=== PATIENT | male | born 1990 | race Two or more races ===

== ENCOUNTER 2024-09-01 09:04 | Emergency (ER) | payer MEDICAID, OTHER ==
[~2024-09-01] VITALS: Ht 182.9 cm; Wt 175.0 kg
[2024-09-01 09:10] VITALS: TEMP 98.4
[2024-09-01] MEDS: levETIRAcetam 1000 mg/100ml 100 ML IV ONE (09:44)
--- NOTE | 2024-09-01 09:44 | ED.PDOC ---
HPI (NEURO) HPI Comments 34-year-old male with PMHx Seizures brought in by EMS presents s/p seizure activity. Patient had 2 tonic-clonic seizures that were witnessed by patients spouse. Patient reports that he missed his Keppra doses for today and yesterday. Patient also endorses drinking alcohol more often recently, due to underlying stress from the of his father recently. Patient mentions that he has an appointment with his neurologist on to have an EEG performed. Patient cannot recall the events after the seizure. Chief Complaint: Seizure Time Seen by MD: 09:17 Primary Care Provider: UNKNOWN Reviewed Notes: Medications, Allergies Information Source: Patient, Emergency Med Personnel Mode of Arrival: EMS Severity: Moderate Headache Severity: None Duration: Intermittent Prehospital treatment: None Seizure Quality: Tonic-clonic Seizure Location: Generalized Onset: With light exertion Circumstances: Spontaneous, Recent stress (d) Past Medical History PAST MEDICAL HISTORY: Seizures Surgical History: Denies all surgeries Family History Family History: Reviewed,noncontributory to illness Social History Smoker: Non-Smoker Alcohol: Heavy Drugs: Denies Drug Use Lives In: Home Constitutional: denies: chills, diaphoresis, fatigue, fever, malaise, sweats, weakness, others EENTM: denies: blurred vision, double vision, ear bleeding, ear discharge, ear drainage, ear pain, ear ringing, eye pain, eye redness, hearing loss, mouth pain, mouth swelling, nasal discharge, nose bleeding, nose congestion, nose pain, photophobia, tearing, throat pain, throat swelling, voice changes, others Respiratory: denies: cough, hemoptysis, orthopnea, SOB at rest, shortness of breath, SOB with excertion, stridor, wheezing, others Cardiovascular: denies: chest pain, dizzy spells, diaphoresis, Dyspnea on exertion, edema, irregular heart beat, left arm pain, lightheadedness, palpitations, PND, syncope, others Gastrointestinal: denies: abdomen distended, abdominal pain, blood streaked bowels, constipated, diarrhea, dysphagia, difficulty swallowing, hematemesis, melena, nausea, poor appetite, poor fluid intake, rectal bleeding, rectal pain, vomiting, others Genitourinary: denies: burning, dysuria, flank pain, frequency, hematuria, incontinence, penile discharge, penile sore, pain, testicle pain, testicle swelling, urgency, others Neurological: reports: seizure; denies: dizziness, fainting, headache, left sided numbness, left sided weakness, numbness, paresthesia, pre-existing deficit, right sided numbness, right sided weakness, speech problems, tingling, tremors, weakness, others Musculoskeletal: denies: back pain, gout, joint pain, joint swelling, muscle pain, muscle stiffness, neck pain, others Integumetry: denies: bruises, change in color, change in hair/nails, dryness, laceration, lesions, lumps, rash, wounds, others Allergic/Immunocompromised: denies: Difficulty Healing, Frequent Infections, Hives, Itching, others Hematologic/Lymphatic: denies: anemia, blood clots, easy bleeding, easy bruising, swollen glands, others Endocrine: denies: excessive hunger, excessive sweating, excessive thirst, excessive urination, flushing, intolerance to cold, intolerance to heat, unexplained weight gain, unexplained weight loss, others Psychiatric: denies: anxiety, bipolar disorder, depression, hopeless, panic disorder, schizophrenia, sleepless, suicidal, others All Other Systems: Reviewed and Negative Physical Exam General Appearance: No Apparent Distress, Obese, Other (NO ORAL TRAUMA) HEENT: NOT DONE Neck: NOT DONE Respiratory: NOT DONE Cardiovascular: NOT DONE Breast Exam: Deferred Gastrointestinal: No Organomegaly, Non Tender, No Pulsatile Mass, Normal Bowel Sounds, Soft Genitalia: Deferred Pelvic: Deferred Rectal: Deferred Extremities: No calf tenderness, Normal capillary refill, Normal inspection, Normal range of motion, Non-tender, No pedal edema Neurologic: Alert, running specialist II-XII nml as Tested, No Motor Deficits, Normal Affect, Normal Mood, No Sensory Deficits Cerebellar Function: Normal Reflexes: Normal Skin: Dry, Normal Color, Warm Lymphatic: No Adenopathy Was a procedure done? Was a procedure done?: No Differential Diagnosis (SZ) Seizure: Psychogenic Seizure, Alcohol Withdrawl, Idiopathic, Epilepsy-Break Through, Epilepsy-Status X-Ray, Labs, Meds, VS Vital Signs Date Time Temp Pulse Resp B/P (MAP) Pulse Ox O2 Delivery O2 Flow Rate FiO2 09/01/24 09:10 98.4 84 16 153/100 (117) 96 98.4 09/01/24 09:04 98.4 84 16 153/100 (117) 96 Lab Test 09/01/24 09:45 Range/Units White Blood Count 8.0 4.4-10.8 10^3/uL Red Blood Count 5.46 4.5-5.90 10^6/uL Hemoglobin 15.4 13.5-17.5 g/dL Hematocrit 46.8 41.0-53.0 % Mean Corpuscular Volume 85.7 80.0-100.0 fL Mean Corpuscular Hemoglobin 28.2 28.0-32.0 pg Mean Corpuscular Hemoglobin Concent 33.0 32.0-36.0 g/dL Red Cell Distribution Width 14.0 11.8-14.3 % Platelet Count 317 140-450 10^3/uL Mean Platelet Volume 6.0 L 6.9-10.8 fL Neutrophils (%) (Auto) 75.6 37.0-80.0 % Lymphocytes (%) (Auto) 18.3 10.0-50.0 % Monocytes (%) (Auto) 5.0 0.0-12.0 % Eosinophils (%) (Auto) 0.5 0.0-7.0 % Basophils (%) (Auto) 0.6 0.0-2.0 % Neutrophils # (Auto) 6.0 1.6-8.6 10 ^3/uL Lymphocytes # (Auto) 1.5 0.4-5.4 10 ^3/uL Monocytes # (Auto) 0.4 0-1.3 10 ^3/uL Eosinophils # (Auto) 0 0-0.8 10 ^3/uL Basophils # (Auto) 0 0-0.2 10 ^3/uL Nucleated Red Blood Cells 0.0 % Sodium Level 137 136-145 mmol/L Potassium Level 4.5 3.5-5.1 mmol/L Chloride Level 101 98-107 mmol/L Carbon Dioxide Level 27 20-31 mmol/L Anion Gap 9 5-15 Blood Urea Nitrogen 12 9-23 mg/dL Creatinine 1.05 0.700-1.30 mg/dL Glomerular Filtration Rate Calc 94 >90 mL/min BUN/Creatinine Ratio 11.4 10.0-20.0 Serum Glucose 106 74-106 mg/dL Calcium Level 9.8 8.7-10.4 mg/dL Current Medications Medications (Trade) Dose Ordered Sig/Perry Route Start Time Stop Time Status Last Admin Levetiracetam 100 ml @ 400 mls/hr ONCE ONCE IV 09/01/24 09:30 09/01/24 09:44 DC 09/01/24 09:44 34-year-old male presents here presents here status post seizures. Patient has missed 2 doses of his Keppra as he was not in the home and did not have his medications on him. He has a known history of seizures and had a seizure this morning. Tonic-clonic. At this time blood work has been done with a normal CBC and BMP. I have loaded him with Keppra 1000 mg IV. At this time I will be discharging him home. He states he has been off Keppra at home. Strongly ad vised him that he should keep Keppra on him at all times. Patient already states that he has does not drive as his license has been taken away. Advised him to return if symptoms worsen or persist. Time of 1ST Reevaluation: 09:47 Reevaluation 1ST: Unchanged Patient Education/Counseling: Diagnosis, Treatment, Prognosis Family Education/Counseling: Diagnosis, Treatment, Prognosis Departure 1 Departure Time of Disposition: 11:00 Impression: Primary Impression: Seizure Disposition: 01 HOME / SELF CARE / HOMELESS Condition: Fair Discharged With: Self Critical Care Note Critical Care Time?: No Stability Stability form required: No Heart Score Heart Score: Heart Score Response (Comments) Value History N/A 0 EKG N/A 0 Age N/A 0 Risk Factors N/A 0 Troponin N/A 0 Total 0 I personally scribed for GUI TA MD ([email or web address]) on 09/01/24 at 09:44. Electronically submitted by Leeroy Shaffer ([email or web address]). I personally scribed for GUI TA MD ([email or web address]) on 09/01/24 at 09:47. Electronically submitted by Leeroy Shaffer ([email or web address]). GUI TA MD Sep 01, 2024 09:44
[2024-09-01 09:56] LABS: Basophils # (auto) 0 10 ^3/uL (0-0.2); Basophils % (auto) 0.6 % (0.0-2.0); Eosinophils # (auto) 0 10 ^3/uL (0-0.8); Eosinophils % (auto) 0.5 % (0.0-7.0); Hematocrit 46.8 % (41.0-53.0); Hemoglobin 15.4 g/dL (13.5-17.5); Lymphocytes # (auto) 1.5 10 ^3/uL (0.4-5.4); Lymphocytes % (auto) 18.3 % (10.0-50.0); Mean Corpuscular Hemoglobin 28.2 pg (28.0-32.0); Mean Corpuscular Volume 85.7 fL (80.0-100.0); Monocytes # (auto) 0.4 10 ^3/uL (0-1.3); Neutrophils % (auto) 75.6 % (37.0-80.0); Platelet Count (auto) 317 10^3/uL (140-450); Red Blood Cells 5.46 10^6/uL (4.5-5.90)
[2024-09-01 10:06] LABS: Anion Gap 9 (5-15); Carbon Dioxide 27 mmol/L (20-31); Chloride 101 mmol/L (98-107); Potassium 4.5 mmol/L (3.5-5.1); Sodium 137 mmol/L (136-145)
[2024-09-01 10:07] LABS: Calcium 9.8 mg/dL (8.7-10.4)
[2024-09-01 10:12] LABS: BUN/Creatinine Ratio 11.4 (10.0-20.0); Blood Urea Nitrogen 12 mg/dL (9-23)
[2024-09-01 10:23] LABS: Glucose 106 mg/dL (74-106)
[2024-09-01 11:26] VITALS: BP 133/92; PULSE 78; RESP 16; O2SAT 96
== END 2024-09-01 11:29 | disposition home or self-care (01) ==
LOC: EDBD 09:04 → ER 09:04
DX: R56.9 Unspecified convulsions (principal)
CPT/HCPCS: 36415; 80048; 82947; 85025; 96365; 99284; J1953; 96372

== ENCOUNTER 2024-09-22 03:51 | Emergency (ER) | payer MEDICAID ==
[~2024-09-22] VITALS: Ht 180.3 cm; Wt 150.0 kg
[2024-09-22] MEDS: levETIRAcetam 500 MG TAB PO ONE (04:35)
--- NOTE | 2024-09-22 04:46 | ED.PDOC ---
HPI (NEURO) HPI Comments 34-year-old male came to ER via EMS for seizures. Patient does have you do have seizure disorder, takes Keppra 500 mg twice a day, however patient usually foregoes the night (2nd) dose. Patient was drinking earlier and he went to bed without taking his Keppra again. Had a witnessed tonic clonic seizure, lasting about a minute. 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 Information Source: Patient, Emergency Med Personnel Mode of Arrival: EMS Severity: Moderate Dizziness/Weakness Severity: Unable to do activities Headache Severity: Moderate Timing: Minutes Duration: Minutes Prehospital treatment: None Seizure Quality: Tonic-clonic Headache Quality: Throbbing, Aching Headache Location: Generalized Weakness Location: Generalized Numbness Location: Generalized Seizure Location: Generalized Onset: At rest Circumstances: Spontaneous Symptoms: Weakness Before: Normal During: LOC After: Confusion, Headache History of: Seizure Disorder, Other (Alcoholism) Modifying factors: Nothing Associated Signs and Symptoms: Weakness Past Medical History PAST MEDICAL HISTORY: Seizures Surgical History: Denies all surgeries Family History Family History: Reviewed,noncontributory to illness Social History Smoker: Non-Smoker Alcohol: Heavy Drugs: Denies Drug Use Lives In: Home Constitutional: denies: chills, diaphoresis, fatigue, fever, malaise, sweats, weakness, others EENTM: denies: blurred vision, double vision, ear bleeding, ear discharge, ear drainage, ear pain, ear ringing, eye pain, eye redness, hearing loss, mouth pain, mouth swelling, nasal discharge, nose bleeding, nose congestion, nose pain, photophobia, tearing, throat pain, throat swelling, voice changes, others Respiratory: denies: cough, hemoptysis, orthopnea, SOB at rest, shortness of breath, SOB with excertion, stridor, wheezing, others Cardiovascular: denies: chest pain, dizzy spells, diaphoresis, Dyspnea on exertion, edema, irregular heart beat, left arm pain, lightheadedness, palpitations, PND, syncope, others Gastrointestinal: denies: abdomen distended, abdominal pain, blood streaked bowels, constipated, diarrhea, dysphagia, difficulty swallowing, hematemesis, melena, nausea, poor appetite, poor fluid intake, rectal bleeding, rectal pain, vomiting, others Genitourinary: denies: burning, dysuria, flank pain, frequency, hematuria, incontinence, penile discharge, penile sore, pain, testicle pain, testicle swelling, urgency, others Neurological: reports: seizure; denies: dizziness, fainting, headache, left sided numbness, left sided weakness, numbness, paresthesia, pre-existing deficit, right sided numbness, right sided weakness, speech problems, tingling, tremors, weakness, others Musculoskeletal: denies: back pain, gout, joint pain, joint swelling, muscle pain, muscle stiffness, neck pain, others Integumetry: denies: bruises, change in color, change in hair/nails, dryness, laceration, lesions, lumps, rash, wounds, others Allergic/Immunocompromised: denies: Difficulty Healing, Frequent Infections, Hives, Itching, others Hematologic/Lymphatic: denies: anemia, blood clots, easy bleeding, easy bruising, swollen glands, others Endocrine: denies: excessive hunger, excessive sweating, excessive thirst, excessive urination, flushing, intolerance to cold, intolerance to heat, unexplained weight gain, unexplained weight loss, others Psychiatric: denies: anxiety, bipolar disorder, depression, hopeless, panic disorder, schizophrenia, sleepless, suicidal, others Physical Exam General Appearance: No Apparent Distress, Normal HEENT: Normal ENT Inspection, Pharynx Normal, TMs Normal Neck: Full Range of Motion, Non-Tender, Normal, Normal Inspection Respiratory: Chest Non-Tender, Lungs Clear, No Accessory Muscle Use, No Respiratory Distress, Normal Breath Sounds Cardiovascular: No Edema, No JVD, No Murmur, No Gallop, Normal Peripheral Pulses, Regular Rate/Rhythm Breast Exam: Deferred Gastrointestinal: No Organomegaly, Non Tender, No Pulsatile Mass, Normal Bowel Sounds, Soft Genitalia: Deferred Pelvic: Deferred Rectal: Deferred Extremities: No calf tenderness, Normal capillary refill, Normal inspection, Normal range of motion, Non-tender, No pedal edema Musculoskeletal : Apperance: Normal Neurologic: Alert, border machine operator II-XII nml as Tested, No Motor Deficits, Normal Affect, Normal Mood, No Sensory Deficits Cerebellar Function: Normal Reflexes: Normal Skin: Dry, Normal Color, Warm Lymphatic: No Adenopathy Was a procedure done? Was a procedure done?: No Differential Diagnosis (SZ) Seizure: Psychogenic Seizure, Hypoxemia, Idiopathic, Encephalopathy, Epilepsy- Break Through, Epilepsy-Status X-Ray, Labs, Meds, VS Vital Signs Date Time Temp Pulse Resp B/P (MAP) Pulse Ox O2 Delivery O2 Flow Rate FiO2 09/22/24 03:51 98.6 94 16 147/103 (118) 96 98.6 Current Medications Medications (Trade) Dose Ordered Sig/Perry Route Start Time Stop Time Status Last Admin Levetiracetam (Keppra Tablet) 1,000 mg ONCE ONCE PO 09/22/24 04:30 09/22/24 04:31 DC 09/22/24 04:35 Time of 1ST Reevaluation: 04:41 Reevaluation 1ST: Unchanged Patient Education/Counseling: Diagnosis, Treatment Family Education/Counseling: No Family Present Departure 1 Departure Time of Disposition: 04:54 (Patient had a breakthrough seizure in the setting of medication noncompliance. Patient has returned to baseline. Patient would like to go home. We will discharge patient home with outpatient follow up) Impression: Primary Impression: Breakthrough seizure Disposition: 01 HOME / SELF CARE / HOMELESS Condition: Stable Additional Instructions: You had a breakthrough seizure today. It is important to take your seizure medication. You should stay well rested and well hydrated. You should follow up with your regular doctor within 1 week. If your symptoms worsen or you have any other concerns then please return to the emergency room. Discharged With: Self Critical Care Note Critical Care Time?: No Stability Stability form required: No Heart Score Heart Score: Heart Score Response (Comments) Value History N/A 0 EKG N/A 0 Age N/A 0 Risk Factors N/A 0 Troponin N/A 0 Total 0 I personally scribed for ALEX SANTOYO MD ([email or web address]) on 09/22/24 at 04:46. Electronically submitted by Pavan Peter ([email or web address]). ALEX SANTOYO MD Sep 22, 2024 04:46
[2024-09-22 04:50] VITALS: BP 147/103; PULSE 94; RESP 16; TEMP 98.6; O2SAT 96
== END 2024-09-22 05:01 | disposition home or self-care (01) ==
LOC: EDBD 03:51 → ER 03:51 → EDUNIT# 03:51 → ER 05:01
DX: G40.909 Epilepsy, unspecified, not intractable, without status epilepticus (principal); Z79.899 Other long term (current) drug therapy

== ENCOUNTER 2024-09-26 15:03 | Inpatient (IN) | payer MEDICAID ==
[~2024-09-26] VITALS: Ht 182.9 cm; Wt 85.3 kg
--- NOTE | 2024-09-26 15:17 | ECG ---
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
--- NOTE | 2024-09-26 15:32 | ED.PDOC ---
HPI (NEURO) HPI Comments HPI: Poor Historian. 34y M who presents to the ED for chief complaint of seizures. Pt had the following ED course: -pt states he has seizure earlier this AM witnessed by mother lasting approx 2 minutes witnessed by mother while sitting at dining table - pt did not fall or have any associate loss of consciousness and no noted oral trauma or incontinence was noted - pt states he has history of seizure disorder and takes Keppra 500 mg BID and states he is complaint and states he took his prescribed dose today - pt states he last had seizure last Monday despite also having taken his Meds - pt states he now in the ED, he is alert and oriented x 4 and no associated headache, dizziness or any associated symptoms are noted - pt states he had brain MRI 2 weeks prior and saw neurologist 1 days prior and states it came back negative -pt otherwise denies any other symptoms at this time. - past medical history: seizure disorder, past surgical history: gastric sleeve, medications: keppra allergies: denies social history: denies tobacco use, denies Etoh use, denies drug use REVIEW OF SYSTEMS: CONSTITUTIONAL: Denies acute: fever, diaphoresis, chills, generalized weakness. HEAD: Denies acute: headache, photophobia Eyes: Denies acute: Double vision, vision loss, eye pain, eye discharge. EARS: Denies acute: tinnitus, hearing loss, ear discharge, ear pain, THROAT: Denies acute: sore throat, swelling, difficulty swallowing , pain with swallowing, change in voice. NECK: Denies acute: neck pain, neck swelling, stiff neck. HEART: Denies acute : chest pain, palpitations, LUNGS: Denies acute: SOB, wheezing, cough, hemoptysis ABDOMEN: Denies acute: abdominal pain, Nausea, Vomiting, diarrhea, melena , hematemesis, hematochezia SKIN: Denies acute: rash, redness, lesions, itchiness. EXTREMITIES: Denies acute: calf pain, numbness, tingling, weakness, denies pain in extremity. Denies acute: Low back pain. Neuro: Denies acute: focal neurological deficit, motor or sensory focal neurological deficit, , confusion, dizziness, change in mental status, loss of bowel or bladder function, cauda equina like symptoms. : Denies acute: dysuria, hematuria, flank pain, increase in urinary frequency. PSYCH: Denies acute: hallucination, suicidal ideation, homicidal ideation. PHYSICAL EXAM: General: no acute distress, awake and alert. Head: normocephalic, atraumatic. Neck: supple, trachea is midline, no swelling. Throat: Normal phonation. Eyes:, no erythema, no purulent discharge, no proptosis, no icterus. Heart: regular rate, regular rhythm, no significant murmur appreciated. Lungs: no apparent respiratory distress, Able to speak in full sentences. No wheezing, no rhonchi, no crackles. No stridors Clear to auscultation bilaterally. Abdomen: non tender to palpation, non distended, soft, no guarding, no rebound, + bowel sounds. Neuro: Awake, Alert, oriented to name, self, situation, follows commands GCS=15. Speech is normal. Skin: no petechia, no purpura, no cyanosis, non-pale, not jaundice. Lower extremities: --no - Pitting edema no deformity, no focal swelling, no calf TTP. Makes eye contact. moves all four extremities. Face: no apparent facial droop. Ambulating in the ED independently. PERRLA, EOM-I CN 2-12 are grossly intact, No nystagmus. No nuchal rigidity, Kernig's sign, Brudzinski's sign, no meningeal signs. ED COURSE: Chief Complaint: Seizure Time Seen by MD: 15:06 Primary Care Provider: UNKNOWN Reviewed Notes: Medications, Allergies Information Source: Patient Mode of Arrival: Ambulatory Brought in by: self Past Medical History PAST MEDICAL HISTORY: Seizures Surgical History: Denies all surgeries Family History Family History: Reviewed,noncontributory to illness Social History Smoker: Non-Smoker Alcohol: Heavy Drugs: Denies Drug Use Lives In: Home Was a procedure done? Was a procedure done?: No Differential Diagnosis (SZ) Seizure: Other (SEIZUREDDX include not limited to CVA, cerebellar ischemia/infarct, carotid stenosis, vertebral/carotid artery dissection,, vertebrobasillary insufficiency, Intracranial mass/infection/bleed, encephalopathy, elctrolyte abnormality, thyroid disease, multiple sclerosis, hypoglycemia, drug toxicity, cardiac arrhythmia, sub-theraputic anti-convulsion medications, known seizure disorder, pseudo-seizure.) X-Ray, Labs, Meds, VS Vital Signs Date Time Temp Pulse Resp B/P (MAP) Pulse Ox O2 Delivery O2 Flow Rate FiO2 09/26/24 19:40 98.5 65 16 90/46 (61) 96 98.5 09/26/24 16:25 98.0 92 17 151/85 (107) 96 98.0 09/26/24 16:25 92 17 96 Room Air* 0 21 09/26/24 16:24 94 09/26/24 15:16 101 09/26/24 15:13 99.0 103 20 122/83 (96) 97 99.0 Lab Test 09/26/24 18:40 09/26/24 16:20 09/26/24 15:51 09/26/24 15:20 Range/Units Troponin I High Sensitivity 11 9 8 </=54 ng/L Urine Color Yellow Yellow Urine Clarity Clear Clear Urine pH 5.5 5.0-9.0 Urine Specific [place] 1.027 1.001-1.035 Urine Protein 1+ H Negative Urine Ketones 1+ H Negative Urine Blood Negative Negative /uL Urine Nitrite Negative Negative Urine Bilirubin Negative Negative Urine Urobilinogen 2 H Negative mg/dL Urine Leukocyte Esterase Negative Negative /uL Urine RBC 3 0 - 3 /hpf Urine Microscopic WBC 5 H 0-3 /HPF Urine Squamous Epithelial Cells Few <5 /hpf Urine Bacteria Few H None Seen /hpf Urine Mucus Few None Seen Urine Sperm Present None Seen /hpf Urine Glucose Normal Normal mg/dL White Blood Count 11.3 H 4.4-10.8 10^3/uL Red Blood Count 5.39 4.5-5.90 10^6/uL Hemoglobin 15.7 13.5-17.5 g/dL Hematocrit 47.3 41.0-53.0 % Mean Corpuscular Volume 87.8 80.0-100.0 fL Mean Corpuscular Hemoglobin 29.1 28.0-32.0 pg Mean Corpuscular Hemoglobin Concent 33.1 32.0-36.0 g/dL Red Cell Distribution Width 14.0 11.8-14.3 % Platelet Count 290 140-450 10^3/uL Mean Platelet Volume 6.0 L 6.9-10.8 fL Neutrophils (%) (Auto) 79.3 37.0-80.0 % Lymphocytes (%) (Auto) 13.6 10.0-50.0 % Monocytes (%) (Auto) 6.3 0.0-12.0 % Eosinophils (%) (Auto) 0.5 0.0-7.0 % Basophils (%) (Auto) 0.3 0.0-2.0 % Neutrophils # (Auto) 9.0 H 1.6-8.6 10 ^3/uL Lymphocytes # (Auto) 1.5 0.4-5.4 10 ^3/uL Monocytes # (Auto) 0.7 0-1.3 10 ^3/uL Eosinophils # (Auto) 0.1 0-0.8 10 ^3/uL Basophils # (Auto) 0 0-0.2 10 ^3/uL Nucleated Red Blood Cells 0.1 % Sodium Level 139 136-145 mmol/L Potassium Level 4.2 3.5-5.1 mmol/L Chloride Level 104 98-107 mmol/L Carbon Dioxide Level 26 20-31 mmol/L Anion Gap 9 5-15 Blood Urea Nitrogen 15 9-23 mg/dL Creatinine 0.99 0.700-1.30 mg/dL Glomerular Filtration Rate Calc 101 >90 mL/min BUN/Creatinine Ratio 15.2 10.0-20.0 Serum Glucose 73 L 74-106 mg/dL Lactic Acid Level 1.6 0.4-2.0 mmol/L Calcium Level 9.7 8.7-10.4 mg/dL Magnesium Level 1.9 1.6-2.6 mg/dL Total Bilirubin 0.7 0.2-1.0 mg/dL Aspartate Amino Transferase (AST) 25 13-40 U/L Alanine Aminotransferase (ALT) 32 7-40 U/L Alkaline Phosphatase 80 46-116 U/L Creatine Kinase 141 46-171 U/L B-Type Natriuretic Peptide 16.97 0-100 pg/mL Total Protein 8.0 5.7-8.2 g/dL Albumin 5.0 H 3.2-4.8 g/dL Test 09/26/24 15:14 Range/Units Levetiracetam Level Pending Current Medications Medications (Trade) Dose Ordered Sig/Perry Route Start Time Stop Time Status Last Admin Levetiracetam 100 ml @ 400 mls/hr ONCE ONCE IV 09/26/24 15:15 09/26/24 15:29 DC 09/26/24 16:36 Ceftriaxone Sodium 50 ml @ 100 mls/hr ONCE ONCE IV 09/26/24 18:45 09/26/24 19:14 DC 09/26/24 19:00 [facility] [id number] [place] [id number] Ph: [phone] DIAGNOSTIC IMAGING Diagnostic Imaging Report : [id number] Signed PATIENT: TERI RAUSCH ACCT: [id number] UNIT: [id number] : 1990 LOC: ER ROOM / BED: / AGE / SEX: 34 / M ADM STATUS: REG ER SERVICE 1512 ORDERING PHYSICIAN: JEAN CLAUDE FRIEDMAN DO PROCEDURE(s): CXRP - CHEST PORTABLE REASON: seizure ORDER NUMBER(s): [id number], ACCESSION NUMBER(s): [id number] EXAM: XY CHEST PORTABLE HISTORY: seizure COMPARISON: None TECHNIQUE: Portable AP view of the chest was performed. FINDINGS: There is mild interstitial prominence, greatest centrally. No pneumothorax or consolidative infiltrates. The heart is not enlarged. IMPRESSION: Mild interstitial prominence may be due to reactive airways disease or mild CHF. The lungs are otherwise clear. ATED BY: PAULA RAMIREZ MD DICTATED DATE/TIME: 09/26/24 154 SIGNED BY: PAULA RAMIREZ MD SIGNED DATE/TIME: 09/26/24 154 CC: Time of 1ST Reevaluation: 22:51 Reevaluation 1ST: Resolved Patient Education/Counseling: Diagnosis, Treatment Family Education/Counseling: No Family Present Comments Patient presented with the above HPI.---seizure---workup was initiated. patient was found with the above mentioned diagnosis. the following medications were ordered: please refer to order lists of meds and tests obtained by myself Dr. Friedman. Patient ED course and VS have been stabilized. Patient has been reassessed in the ED and remained in a stable condition. Pertinent incidental findings were discussed with the patient and/or family. Patient/family voices understanding and is agreeable with plan. Patient has been observed in the ED adequate length of time to insure improvement/stability. Escalation of care considered: Consideration of escalation to observation or admission Patient was ADMITTED to the medicine team for further evaluation and treatment of their presentation. Patient was given antibiotics for suspected UTI. All the reports of any imaging studies that were ordered by myself were reviewed by myself. Departure 1 Departure Time of Disposition: 19:15 Impression: Primary Impression: Recurrent seizures Disposition: ADMITTED INPATIENT Admit to: Tele Condition: Guarded Discharged With: Self Critical Care Note Critical Care Time?: No Heart Score Heart Score: Heart Score Response (Comments) Value History N/A 0 EKG N/A 0 Age N/A 0 Risk Factors N/A 0 Troponin N/A 0 Total 0 I personally scribed for JEAN CLAUDE FRIEDMAN DO ([email or web address]) on 09/26/24 at 15:59. Electronically submitted by Alexa Osborne (JUSTIN). I personally scribed for JEAN CLAUDE FRIEDMAN DO ([email or web address]) on 09/26/24 at 17:39. Electronically submitted by Alexa Osborne (LAMINE). JEAN CLAUDE FRIEDMAN DO Sep 26, 2024 15:32
[2024-09-26 15:41] LABS: Basophils # (auto) 0 10 ^3/uL (0-0.2); Basophils % (auto) 0.3 % (0.0-2.0); Eosinophils # (auto) 0.1 10 ^3/uL (0-0.8); Eosinophils % (auto) 0.5 % (0.0-7.0); Hematocrit 47.3 % (41.0-53.0); Hemoglobin 15.7 g/dL (13.5-17.5); Lymphocytes # (auto) 1.5 10 ^3/uL (0.4-5.4); Lymphocytes % (auto) 13.6 % (10.0-50.0); Mean Corpuscular Hemoglobin 29.1 pg (28.0-32.0); Mean Corpuscular Hgb Conc. 33.1 g/dL (32.0-36.0); Mean Corpuscular Volume 87.8 fL (80.0-100.0); Monocytes # (auto) 0.7 10 ^3/uL (0-1.3); Monocytes % (auto) 6.3 % (0.0-12.0); Neutrophils % (auto) 79.3 % (37.0-80.0); Nucleated Red Blood Cells % 0.1 %; Platelet Count (auto) 290 10^3/uL (140-450); Red Blood Cells 5.39 10^6/uL (4.5-5.90); White Blood Cell 11.3 10^3/uL (4.4-10.8)
--- NOTE | 2024-09-26 15:50 | DVH ---
EXAM: XY CHEST PORTABLE HISTORY: seizure COMPARISON: None TECHNIQUE: Portable AP view of the chest was performed. FINDINGS: There is mild interstitial prominence, greatest centrally. No pneumothorax or consolidativ e infiltrates. The heart is not enlarged. IMPRESSION: Mild interstitial prominence may be due to reactive airways disease or mild CHF. The lungs are other callejas clear.
[2024-09-26 15:57] LABS: Alanine Aminotransferase 32 U/L (7-40); Alkaline Phosphatase 80 U/L (46-116); Anion Gap 9 (5-15); Aspartate Aminotransferase 25 U/L (13-40); BUN/Creatinine Ratio 15.2 (10.0-20.0); Bilirubin, Total 0.7 mg/dL (0.2-1.0); Blood Urea Nitrogen 15 mg/dL (9-23); Calcium 9.7 mg/dL (8.7-10.4); Carbon Dioxide 26 mmol/L (20-31); Chloride 104 mmol/L (98-107); Creatine Kinase IFCC 141 U/L (46-171); Magnesium 1.9 mg/dL (1.6-2.6); Potassium 4.2 mmol/L (3.5-5.1); Sodium 139 mmol/L (136-145)
[2024-09-26 16:02] LABS: Glucose 73 mg/dL (74-106)
[2024-09-26 16:14] LABS: Urine Bacteria FEW /hpf (None Seen); Urine Blood Negative /uL (Negative); Urine Clarity Clear (Clear); Urine Color Yellow (Yellow); Urine Mucus FEW (None Seen); Urine Protein, UAD 1+ (Negative); Urine Specific Gravity 1.027 (1.001-1.035); Urine Sperm PRESENT /hpf (None Seen); Urine Squamous Epithelial Cell FEW /hpf (<5); Urine Urobilinogen 2 mg/dL (Negative); Urine WBC 5 /HPF (0-3); Urine pH 5.5 (5.0-9.0)
[2024-09-26 16:25] VITALS: PULSE 92; RESP 17; O2SAT 96
[2024-09-26] MEDS: levETIRAcetam 1000 mg/100ml 100 ML IV ONE (16:36)
[2024-09-26] MEDS: cefTRIAXone 1GM/50ML D5W 50 ML IV ONE (19:00)
[2024-09-26] MEDS ORDERED: LORazepam 2MG/ML-1ML VIAL IV PRN (23:15)
[2024-09-26] MEDS ORDERED: HYDROcodone-ACET 5/325MG TAB PO PRN (23:15)
[2024-09-26] MEDS ORDERED: ONDANSETRON HCL 4 MG/2 ML VIAL IV PRN (23:15)
[2024-09-26] MEDS ORDERED: MORPHINE SULFATE INJ 2 MG/ml SYRG IV PRN (23:15)
[2024-09-26] MEDS: PANTOPRAZOLE 40 MG/10 ML VIAL INJ IV ONE (23:15)
--- NOTE | 2024-09-26 23:15 | DVHHPRES ---
History of Present Illness Resident Creating Document: TANISHA GRIMES RESDIENT History of Present Illness This is a 34-year-old male with past medical history of diabetes, dyslipidemia, gastric sleeve surgery (due to morbid obesity) and seizure came to the hospital after an episode of seizure. Per patient, he was sitting on the chair when sudden his legs start shaking (witnessed by the mother), lost his consciousness but did not fall, upon waking up he was confused for 10 minutes, had bitten his tongue and do not recall the incident. He also reports of feeling hotness. He denies fever, nausea, vomiting, shortness of breath, chest pain or any sensory or motor deficits. Patient has been diagnosed with seizure since 1 year, and has been started on Keppra 500 mg b.i.d. since July 2024. Two weeks back, had an EEG study at his neurologist's office, the result was reported markos, but was told of having a lesion (per patient is scar) in his brain. PMHx: diabetes, dyslipidemia, gastric sleeve surgery (due to morbid obesity) and seizure PSHx: Gastric sleeve surgery Family history: Sister has spina bifida and seizure Social history: Lives with the at home, vaping, and drank occasionally. Home medication: Keppra Allergic history: No known allergy Review of Systems Review of Systems General: patient denies fever, fatigue, weaknes, sweating, any recent changes in appetite and weight HEENT: No headaches, visiual changes, hearing loss, tinnitus, nasal congestion and discharge, and sore throat. Cardiovascular: Denies chest pain, palpitations, dyspnea on exertion, orthopnea, or claudication. Respiratory: No cough, and wheezing. Gastrointestinal: Denies nausea, vomiting, dysphagia, odynophagia, heartburn, abdominal pain, flatulence, bloating, diarrhea, constipation, change in stool, or blood in stool. Genitourinary: No dysuria, hematuria, discharge, frequency, urgency, nocturia, incontinence, and urinary retention. Endocrine: No heat or cold intolerance, polydipsia, polyuria, and polyphagia. Neurological: No dizziness, extremity weakness and numbness, tremors, gait disturbance, seizures, and memory impairment. Psychiatric: Denies depression, anxiety,or insomnia. Musculoskeletal: Denies neck pain, stiffness and swelling, back pain, muscle weakness, joint pain, stiffness, swelling, or limited range of motion. Skin: No rashes, itching, skin lesion, changes in hair, nail, skin texture and breast. Hematologic/Lymphatic: Denies easy bruising, bleeding tendencies, or lymph node enlargement. Allergies: Coded Allergies: NO KNOWN ALLERGIES (Unverified , 09/01/24) Exam Vital Signs Vital Signs Date Time Temp Pulse Resp B/P (MAP) Pulse Ox O2 Delivery O2 Flow Rate FiO2 09/26/24 19:40 98.5 65 16 90/46 (61) 96 98.5 09/26/24 16:25 Room Air* 0 21 Exam General Appearance: Alert, Oriented X3, Cooperative, No acute distress HEENT: Atraumatic, PERRLA, EOMI, Mucous membrane moist/pink Respiratory: Clear to auscultation, Normal air movement Cardiovascular: Regular rate, Normal S1, Normal S2, No murmurs, no chest wall tenderness Abdominal: Normal bowel sounds, Soft, No tenderness, No hepatospenomegaly, No masses Extremities: No clubbing, No cyanosis, No edema, Normal pulses, No tenderness/swelling Skin: No rashes, No breakdown, No significant lesion Neuro: Normal gait, Normal speech, Strength at 5/5 X4 ext, Normal tone, Sensation intact, Cranial nerves 3-12 NL, Reflexes 2+ Psych/Mental Status: Mental status NL, Mood NL Labs/Xrays Labs Test 09/26/24 18:40 09/26/24 15:51 09/26/24 15:20 09/26/24 15:14 Range/Units Troponin I High Sensitivity 11 </=54 ng/L Urine Color Yellow Yellow Urine Clarity Clear Clear Urine pH 5.5 5.0-9.0 Urine Specific [place] 1.027 1.001-1.035 Urine Protein 1+ H Negative Urine Ketones 1+ H Negative Urine Blood Negative Negative /uL Urine Nitrite Negative Negative Urine Bilirubin Negative Negative Urine Urobilinogen 2 H Negative mg/dL Urine Leukocyte Esterase Negative Negative /uL Urine RBC 3 0 - 3 /hpf Urine Microscopic WBC 5 H 0-3 /HPF Urine Squamous Epithelial Cells Few <5 /hpf Urine Bacteria Few H None Seen /hpf Urine Mucus Few None Seen Urine Sperm Present None Seen /hpf Urine Glucose Normal Normal mg/dL White Blood Count 11.3 H 4.4-10.8 10^3/uL Red Blood Count 5.39 4.5-5.90 10^6/uL Hemoglobin 15.7 13.5-17.5 g/dL Hematocrit 47.3 41.0-53.0 % Mean Corpuscular Volume 87.8 80.0-100.0 fL Mean Corpuscular Hemoglobin 29.1 28.0-32.0 pg Mean Corpuscular Hemoglobin Concent 33.1 32.0-36.0 g/dL Red Cell Distribution Width 14.0 11.8-14.3 % Platelet Count 290 140-450 10^3/uL Mean Platelet Volume 6.0 L 6.9-10.8 fL Neutrophils (%) (Auto) 79.3 37.0-80.0 % Lymphocytes (%) (Auto) 13.6 10.0-50.0 % Monocytes (%) (Auto) 6.3 0.0-12.0 % Eosinophils (%) (Auto) 0.5 0.0-7.0 % Basophils (%) (Auto) 0.3 0.0-2.0 % Neutrophils # (Auto) 9.0 H 1.6-8.6 10 ^3/uL Lymphocytes # (Auto) 1.5 0.4-5.4 10 ^3/uL Monocytes # (Auto) 0.7 0-1.3 10 ^3/uL Eosinophils # (Auto) 0.1 0-0.8 10 ^3/uL Basophils # (Auto) 0 0-0.2 10 ^3/uL Nucleated Red Blood Cells 0.1 % Sodium Level 139 136-145 mmol/L Potassium Level 4.2 3.5-5.1 mmol/L Chloride Level 104 98-107 mmol/L Carbon Dioxide Level 26 20-31 mmol/L Anion Gap 9 5-15 Blood Urea Nitrogen 15 9-23 mg/dL Creatinine 0.99 0.700-1.30 mg/dL Glomerular Filtration Rate Calc 101 >90 mL/min BUN/Creatinine Ratio 15.2 10.0-20.0 Serum Glucose 73 L 74-106 mg/dL Lactic Acid Level 1.6 0.4-2.0 mmol/L Calcium Level 9.7 8.7-10.4 mg/dL Magnesium Level 1.9 1.6-2.6 mg/dL Total Bilirubin 0.7 0.2-1.0 mg/dL Aspartate Amino Transferase (AST) 25 13-40 U/L Alanine Aminotransferase (ALT) 32 7-40 U/L Alkaline Phosphatase 80 46-116 U/L Creatine Kinase 141 46-171 U/L B-Type Natriuretic Peptide 16.97 0-100 pg/mL Total Protein 8.0 5.7-8.2 g/dL Albumin 5.0 H 3.2-4.8 g/dL Assessment/Plan Assessment/Plan Known epilepsy with breakthrough seizure Head CT scan shows no acute intracranial abnormality EKGs shows normal sinus rhythm with no acute ST or T-wave changes Consulted neurology Keppra 500 mg b.i.d. Ativan p.r.n. Prediabetes Dyslipidemia DIET: Regular diet DVT PROPHYLAXIS: Lovenox GI PROPHYLAXIS:: Protonix CODE STATUS: Goal of care discussed for more than 18 minutes, full code DISPOSITION: Telemetry Patient's status and plan discussed with the patient. Case discussed with Dr. Garcia. Plan discussed with: Patient, Other (RN) My Orders Orders - TANISHA GRIMES RESROBERTO Procedure Category Date Status Time Admit ADMIT 09/26/24 Transmitted 23:04 Code Status CODE 09/26/24 Transmitted 23:04 Vital Signs [facility] 09/26/24 Transmitted 23:04 Review Orders With [facility] 09/26/24 Transmitted Adm. 23:04 Consistent DIET 09/27/24 Transmitted Carb(Ccho)Diabetes Breakfast Notify Md Of Changes [facility] 09/26/24 Transmitted From Base 23:04 Advance Directive [facility] 09/26/24 Transmitted 23:04 Lipid Panel LAB 09/26/24 Transmitted 23:04 Patient Condition ORDERS 09/26/24 Transmitted 23:04 Allergies [facility] 09/26/24 Transmitted 23:04 Hydrocodone-Acet [facility] 09/26/24 Transmitted 5/325mg Tab ([place] 23:15 Ondansetron Hcl PHA 09/26/24 Transmitted (Zofran) 23:15 Drug Screen LAB 09/26/24 Transmitted 23:04 Hemoglobin A1c LAB 09/26/24 Transmitted 23:04 Morphine 2mg Iv Q4hprn PHA 09/26/24 Transmitted 23:15 Lovenox 40mg PHA 09/27/24 Verified 10:00 Stat Ekg For Chest [facility] 09/26/24 Verified Pain 23:04 Notify Of Changes [facility] 09/26/24 Verified From Base 23:04 Agricultural Sciences Professor For [facility] 09/26/24 Verified 24 Hours 23:04 Rhythm Strips Once [facility]UL[facility] 09/26/24 Verified Every Shift 23:04 Emergency Dysrhythmia [facility]UL[facility] 09/26/24 Verified Protocol 23:04 Vitamin B12 LAB 09/26/24 Transmitted 23:04 Folate (Folic Acid) LAB 09/26/24 Transmitted 23:04 Thyroid Stimulating LAB 09/26/24 Transmitted Hormone 23:[address] 09/26/24 Transmitted 23:04 * Neurology Consult CONS 09/26/24 Verified 23:04 Seizure Precautions ED NURSING 09/26/24 Transmitted Complete Blood Count LAB 09/27/24 Verified 04:00 Comprehensive LAB 09/27/24 Verified Metabolic Panel 04:00 D-Dimer LAB 09/26/24 Transmitted 23:04 Vitamin D, 25-Hydroxy LAB 09/26/24 Transmitted 23:04 Pantoprazole PHA 09/26/24 Verified (Protonix) 23:15 Pantoprazole PHA 09/27/24 Verified (Protonix) 10:00 Levetiracetam Ivpb PHA 09/27/24 Verified Keppra 10:00 Lorazepam 2mg/Ml Inj PHA 09/26/24 Verified (Ativan Inj) 23:15 Blood Alcohol LAB 09/26/24 Verified 23:14 Date of Service: Sep 26, 2024 Billing Provider: ROBIN GARCIA MD Common Visit Codes: [id number] INP/OBS CARE (HIGH) TANISHA GRIMES RESDIENT Sep 26, 2024 23:15 ROBIN GARCIA MD Sep 27, 2024 11:27
[2024-09-26 23:53] LABS: Barbiturate Scree,Urine Neg (NEGATIVE); Opiate Scree,Urine Neg (NEGATIVE); Phencyclidine Screen, Urine Neg (NEGATIVE)
[2024-09-26 23:54] LABS: Amphetamine Screen, Urine Neg (NEGATIVE); Benzodiazephine Screen, Urine Neg (NEGATIVE); Cannabinoid Screen, Urine Neg (NEGATIVE); Cocaine Screen, Urine Neg (NEGATIVE)
[2024-09-27 00:09] LABS: Folate (Folic Acid) 11.32 ng/mL (>5.38); Triglycerides 70 mg/dL (< 150)
--- NOTE | 2024-09-27 00:10 | DVH ---
CLINICAL HISTORY: Seizure TECHNIQUE: Helical imaging carried out from skull base to vertex without intravenous contrast. This e xam was performed according to our departmental dose optimization program. Up-to-date CT equipment an d radiation dose reduction techniques are utilized as appropriate. COMPARISON: None FINDINGS: The ventricles and subarachnoid spaces are normal in size and configuration. There is no midline macario ft or mass effect. The hernandez white matter interfaces are maintained. The basal cisterns are patent. Th ere is no evidence of acute intracranial hemorrhage or extra-axial fluid collection. The mastoid air cells are well-aerated. Mucous retention cyst or polyp in the right maxillary sinus. IMPRESSION: No acute intracranial abnormality.
[2024-09-27 00:11] LABS: Cholesterol 159 mg/dL (< 200); HDL Cholesterol 45 mg/dL (40-59)
[2024-09-27 00:14] LABS: LDL Cholesterol 109 mg/dL (< 100)
[2024-09-27 02:25] VITALS: BP 132/78; PULSE 56; RESP 17; RESP 18; TEMP 97.8; O2SAT 98; O2SAT 99
[2024-09-27] MEDS ORDERED: LEVE500T40 PO (02:58)
[2024-09-27 05:00] VITALS: BP 158/73; PULSE 54; RESP 20; TEMP 98; O2SAT 97
[2024-09-27 06:05] LABS: Basophils # (auto) 0 10 ^3/uL (0-0.2); Basophils % (auto) 0.4 % (0.0-2.0); Eosinophils # (auto) 0.1 10 ^3/uL (0-0.8); Eosinophils % (auto) 1.3 % (0.0-7.0); Hematocrit 42.6 % (41.0-53.0); Hemoglobin 14.8 g/dL (13.5-17.5); Lymphocytes # (auto) 2.7 10 ^3/uL (0.4-5.4); Lymphocytes % (auto) 29.3 % (10.0-50.0); Mean Corpuscular Hemoglobin 29.7 pg (28.0-32.0); Mean Corpuscular Hgb Conc. 34.7 g/dL (32.0-36.0); Mean Corpuscular Volume 85.7 fL (80.0-100.0); Monocytes # (auto) 0.5 10 ^3/uL (0-1.3); Monocytes % (auto) 5.8 % (0.0-12.0); Neutrophils # (auto) 5.8 10 ^3/uL (1.6-8.6); Neutrophils % (auto) 63.2 % (37.0-80.0); Nucleated Red Blood Cells % 0.1 %; Platelet Count (auto) 295 10^3/uL (140-450); Red Blood Cells 4.97 10^6/uL (4.5-5.90); Red Cell Distribution Width 13.8 % (11.8-14.3); White Blood Cell 9.2 10^3/uL (4.4-10.8)
[2024-09-27 06:19] LABS: Alanine Aminotransferase 26 U/L (7-40); Albumin 4.4 g/dL (3.2-4.8); Alkaline Phosphatase 68 U/L (46-116); Anion Gap 7 (5-15); Aspartate Aminotransferase 23 U/L (13-40); BUN/Creatinine Ratio 11.4 (10.0-20.0); Blood Urea Nitrogen 9 mg/dL (9-23); Calcium 9.6 mg/dL (8.7-10.4); Carbon Dioxide 27 mmol/L (20-31); Chloride 104 mmol/L (98-107); Glucose 97 mg/dL (74-106); Potassium 3.9 mmol/L (3.5-5.1); Sodium 138 mmol/L (136-145); Total Protein 7.4 g/dL (5.7-8.2)
[2024-09-27 08:00] VITALS: PULSE 61; RESP 17
[2024-09-27 09:00] VITALS: BP 140/87; PULSE 61; RESP 17; TEMP 97.5; O2SAT 98
[2024-09-27] MEDS: levETIRAcetam 500 mg/100ml 100 ML IV SCH (09:25)
[2024-09-27] MEDS: PANTOPRAZOLE 40 MG/10 ML VIAL INJ IV SCH (09:26)
[2024-09-27] MEDS: ENOXAPARIN SOD 40 MG/0.4 ML SYRINGE SC SCH (09:26)
[2024-09-27] MEDS: ERGOCALCIFEROL 50,000 UNIT(1.25MG) CAP PO SCH (09:26)
[2024-09-27 12:46] VITALS: BP 117/87; PULSE 63; RESP 16; TEMP 98.2; O2SAT 95
[2024-09-27] MEDS: D5W/SOD CHLO 0.9% 1,000 ML IV SCH (13:02)
[2024-09-27] MEDS: cefTRIAXone 1GM/50ML D5W 50 ML IV SCH (14:37)
[2024-09-27 17:07] VITALS: BP 143/73; PULSE 68; RESP 16; TEMP 97.8; O2SAT 97
--- NOTE | 2024-09-27 22:05 | DVHPNRES ---
Progress Note Objective vital signs Vital Sign Date Time Temp Pulse Resp B/P (MAP) Pulse Ox O2 Delivery O2 Flow Rate FiO2 09/27/24 17:07 97.8 68 16 143/73 (96) 97 97.8 09/27/24 08:00 Room Air* 0 21 Total Intake and Output 09/26/24 09/26/24 09/27/24 15:00 23:00 07:00 Intake Total 100 ml 0 ml Balance 100 ml 0 ml medications Current Medications Medications Dose Ordered Sig/Perry Route Start Time Stop Time Status Last Admin Dose Admin Acetaminophen/ Hydrocodone Bitart 1 tab Q4HP PRN PO 09/26/24 23:15 Ondansetron HCl 4 mg Q4HP PRN IV 09/26/24 23:15 Morphine Sulfate 2 mg Q4HPRN PRN IV 09/26/24 23:15 Enoxaparin Sodium 40 mg DAILY SC 09/27/24 10:00 09/27/24 09:26 40 MG Pantoprazole Sodium 40 mg DAILY IV 09/27/24 10:00 09/27/24 09:26 40 MG Levetiracetam 100 ml @ 400 mls/hr BID IV 09/27/24 10:00 09/27/24 09:25 400 MLS/HR Lorazepam 1 mg Q2HP PRN IV 09/26/24 23:15 Ergocalciferol 50,000 unit Q7D PO 09/27/24 09:00 09/27/24 09:26 50,000 UNIT Dextrose/Sodium Chloride 1,000 ml @ 75 mls/hr [id number] IV 09/27/24 07:15 09/27/24 13:02 75 MLS/HR Ceftriaxone Sodium 50 ml @ 100 mls/hr DAILY@09 IV 09/27/24 15:00 09/27/24 14:37 100 MLS/HR laboratory and microbiology Laboratory Tests 09/27/24 05:34 Test 09/27/24 05:34 Range/Units Serum Glucose 97 74-106 mg/dL My Orders My Orders Orders - BRITANY KUMAR Procedure Category Date Status Time D5w/Sod Chlo 0.9% PHA 09/27/24 In Process (D5w Ns 0.9%) 07:15 Urine Bacterial KENNEY 09/27/24 In Process Culture 12:28 Ceftriaxone 1gm/50ml PHA 09/27/24 In Process D5w (Rocephin) 15:00 BRITANY KUMAR RESIDENT Sep 27, 2024 22:05
--- NOTE | 2024-09-27 23:25 | DVHDSRES ---
Discharge Summary Date of Admission Resident Creating Document: TANISHA GRIMES RESDIENT Sep 26, 2024 at 23:04 Date of Discharge: Sep 27, 2024 Admitting Diagnosis Breakthrough seizure Labs/Diagnostic Data: Laboratory Results Test 09/27/24 05:34 09/26/24 23:25 09/26/24 18:40 09/26/24 15:51 White Blood Count 9.2 10^3/uL (4.4-10.8) Red Blood Count 4.97 10^6/uL (4.5-5.90) Hemoglobin 14.8 g/dL (13.5-17.5) Hematocrit 42.6 % (41.0-53.0) Mean Corpuscular Volume 85.7 fL (80.0-100.0) Mean Corpuscular Hemoglobin 29.7 pg (28.0-32.0) Mean Corpuscular Hemoglobin Concent 34.7 g/dL (32.0-36.0) Red Cell Distribution Width 13.8 % (11.8-14.3) Platelet Count 295 10^3/uL (140-450) Mean Platelet Volume 6.0 fL (6.9-10.8) Neutrophils (%) (Auto) 63.2 % (37.0-80.0) Lymphocytes (%) (Auto) 29.3 % (10.0-50.0) Monocytes (%) (Auto) 5.8 % (0.0-12.0) Eosinophils (%) (Auto) 1.3 % (0.0-7.0) Basophils (%) (Auto) 0.4 % (0.0-2.0) Neutrophils # (Auto) 5.8 10 ^3/uL (1.6-8.6) Lymphocytes # (Auto) 2.7 10 ^3/uL (0.4-5.4) Monocytes # (Auto) 0.5 10 ^3/uL (0-1.3) Eosinophils # (Auto) 0.1 10 ^3/uL (0-0.8) Basophils # (Auto) 0 10 ^3/uL (0-0.2) Nucleated Red Blood Cells 0.1 % Sodium Level 138 mmol/L (136-145) Potassium Level 3.9 mmol/L (3.5-5.1) Chloride Level 104 mmol/L (98-107) Carbon Dioxide Level 27 mmol/L (20-31) Anion Gap 7 (5-15) Blood Urea Nitrogen 9 mg/dL (9-23) Creatinine 0.79 mg/dL (0.700-1.30) Glomerular Filtration Rate Calc 118 mL/min (>90) BUN/Creatinine Ratio 11.4 (10.0-20.0) Serum Glucose 97 mg/dL (74-106) Calcium Level 9.6 mg/dL (8.7-10.4) Total Bilirubin 1.0 mg/dL (0.2-1.0) Aspartate Amino Transferase (AST) 23 U/L (13-40) Alanine Aminotransferase (ALT) 26 U/L (7-40) Alkaline Phosphatase 68 U/L (46-116) Total Protein 7.4 g/dL (5.7-8.2) Albumin 4.4 g/dL (3.2-4.8) D-Dimer, Quantitative < 0.19 mg/L FEU (0.0-0.49) Hemoglobin A1c 5.2 % A1C (<5.7) Triglycerides Level 70 mg/dL (< 150) Cholesterol Level 159 mg/dL (< 200) LDL Cholesterol 109 mg/dL (< 100) HDL Cholesterol 45 mg/dL (40-59) Vitamin B12 Level 755 pg/mL (211-911) Vitamin D 25-Hydroxy 22.7 ng/mL (30.0-100) Folic Acid 11.32 ng/mL (>5.38) Thyroid Stimulating Hormone (TSH) 1.80 uIU/mL (0.55-4.78) Plasma/Serum Blood Alcohol 6.2 mg/dL (<10) Troponin I High Sensitivity 11 ng/L (</=54) Urine Color Yellow (Yellow) Urine Clarity Clear (Clear) Urine pH 5.5 (5.0-9.0) Urine Specific [place] 1.027 (1.001-1.035) Urine Protein 1+ (Negative) Urine Ketones 1+ (Negative) Urine Blood Negative /uL (Negative) Urine Nitrite Negative (Negative) Urine Bilirubin Negative (Negative) Urine Urobilinogen 2 mg/dL (Negative) Urine Leukocyte Esterase Negative /uL (Negative) Urine RBC 3 /hpf (0 - 3) Urine Microscopic WBC 5 /HPF (0-3) Urine Squamous Epithelial Cells Few /hpf (<5) Urine Bacteria Few /hpf (None Seen) Urine Mucus Few (None Seen) Urine Sperm Present /hpf (None Seen) Urine Glucose Normal mg/dL (Normal) Urine Opiates Screen Neg (NEGATIVE) Urine Fentanyl Screen Neg (NEGATIVE) Urine Barbiturates Screen Neg (NEGATIVE) Urine Phencyclidine Screen Neg (NEGATIVE) Urine Amphetamines Screen Neg (NEGATIVE) Urine Benzodiazepines Screen Neg (NEGATIVE) Urine Cocaine Screen Neg (NEGATIVE) Urine Cannabinoids Screen Neg (NEGATIVE) Test 09/26/24 15:20 09/26/24 15:14 Lactic Acid Level 1.6 mmol/L (0.4-2.0) Magnesium Level 1.9 mg/dL (1.6-2.6) Creatine Kinase 141 U/L (46-171) B-Type Natriuretic Peptide 16.97 pg/mL (0-100) Other Laboratory Tests 09/27/24 05:34 Brief Hx & Hospital Course: A 34-year-old male with history of epilepsy (diagnosed 1 year ago), gastric sleeve surgery, prediabetes, and dyslipidemia presented with seizure. Patient reported feeling hot, lost consciousness briefly while seated, and was confused for ~10 minutes after, with tongue biting noted. Denied preceding aura or motor/sensory deficits. He reported having seizures on Friday 09/15 and stated he drinks alcohol on Thursday 09/14, which might be contributing to the episodes. Neurology was consulted. Patient was already on Keppra 500 mg BID since July 2024, reportedly prescribed by outpatient neurologist Dr. Claudio. Imaging with head CT showed no acute intracranial abnormality. EKG revealed normal sinus rhythm without ST/T wave changes. An EEG performed prior to admission was reported normal, though patient was told there is a scar in the brain. He was placed on telemetry. Plan included continuing Keppra and PRN Ativan. Patient was awaiting neurology consult with Dr. Hugo but decided to leave AMA before it took place. He stated that Dr. Claudio had sent prescriptions to his pharmacy already. Physical examination on the day of leaving AMA: General Appearance: Alert, Oriented X3, Cooperative, No acute distress HEENT: Atraumatic, PERRLA, EOMI, Mucous membrane moist/pink Respiratory: Clear to auscultation, Normal air movement Cardiovascular: Regular rate, Normal S1, Normal S2, No murmurs, no chest wall tenderness Abdominal: Normal bowel sounds, Soft, No tenderness, No hepatosplenomegaly, No masses Extremities: No clubbing, No cyanosis, No edema, Normal pulses, No tenderness/swelling Skin: No rashes, No breakdown, No significant lesion Neuro: Normal gait, Normal speech, Strength at 5/5 X4 ext, Normal tone, Sensation intact, Cranial nerves 3-12 NL, Reflexes 2+ Psych/Mental Status: Mental status NL, Mood NL Goals of care discussed with the patient and his for 20 minutes; full code Counseled on alcohol use cessation for 22 minutes on the day of leaving AMA Case discussed with Dr. Stokes Operations or Procedures CLINICAL HISTORY: Seizure TECHNIQUE: Helical imaging carried out from skull base to vertex without intravenous contrast. This exam was performed according to our departmental dose optimization program. Up-to-date CT equipment and radiation dose reduction techniques are utilized as appropriate. COMPARISON: None FINDINGS: The ventricles and subarachnoid spaces are normal in size and configuration. There is no midline shift or mass effect. The hernandez white matter interfaces are maintained. The basal cisterns are patent. There is no evidence of acute intracranial hemorrhage or extra-axial fluid collection. The mastoid air cells are well-aerated. Mucous retention cyst or polyp in the right maxillary sinus. IMPRESSION: No acute intracranial abnormality. Condition at Discharge: Undetermined (AMA) Final Diagnosis/Problems List #Breakthrough seizure #Alcohol USE disorder #Epilepsy #Non compliant #Leukocytosis #Vitamin D deficiency #UTI? #Prediabetes Discharge Disposition: AMA Discharge Instruct/Medications Diet: See Comment (Left AMA) Activity: See Comment (Left AMA) Follow Up/Referral: Left AMA Medications: Left AMA Discharge Statement: "Patient was advised to return to the ER or call 911 if any headaches, dizziness, shortness of breath, chest pain, abdominal pain, bleeding, fevers, or worsening of medical condition. Patient was counseled about treatment plan, medications, possible side effects, patientverbalized understanding. All questions were answered to the best of my ability. This discharge took greater then 30 minutes in planning, reviewing documentation, counseling the patient, and discussing with other team members." ASSESSMENT ASSESSMENT Assessment Addendum Addendum Addendum I was physically present for the murrell portions of the service provided to patient by THE RESIDENT. I have reviewed the documentation, discussed the case with resident and agree with the resident's documentation except as noted. Also the patient's clinical case was discussed with the patient's nurse. This medical document was created using an electronic medical record system with computerized dictation system. Although this document has been carefully reviewed, there might still be some phonetic and typographical errors. These areas are purely typographical due to imperfections of the software programs, and do not reflect any compromise in the patient's medical care. Late signature. Date of Service: Sep 27, 2024 Billing Provider: HAILEY STOKES MD Common Visit Codes: 08385-TAB/OBS DISCH DAY >30min Secondary Visit Codes: 09490-FXMRX CHNG SMOKING >10MIN (Counseled on alcohol use cessation for 22 minutes), 82872-BAIRVNNI CARE PLAN 30 MINUTES (20 minutes) BRITANY KUMAR RESIDENT Sep 27, 2024 23:25 HAILEY STOKES MD Sep 29, 2024 10:34
[2024-09-30 10:59] LABS: Hepatitis B Surface Antigen Negative (Negative)
[2024-09-30 11:15] LABS: Hepatitis C Antibody Negative (Negative)
== END 2024-09-27 20:25 | disposition left against medical advice (07) | DRG 53 ==
LOC: ER 15:03 → OVERFLOW 23:04 → TELE-WESTW 09-27 02:24
PROVIDERS: ADMIT Internal Medicine; ATTEND Emergency Medicine
DX: G40.909 Epilepsy, unspecified, not intractable, without status epilepticus (principal); D72.829 Elevated white blood cell count, unspecified; E11.9 Type 2 diabetes mellitus without complications; E66.01 Morbid (severe) obesity due to excess calories; E55.9 Vitamin D deficiency, unspecified; F10.20 Alcohol dependence, uncomplicated; N39.0 Urinary tract infection, site not specified; E78.5 Hyperlipidemia, unspecified; Z53.29 Procedure and treatment not carried out because of patient's decision for other reasons; Z68.25 Body mass index [BMI] 25.0-25.9, adult; Z82.0 Family history of epilepsy and other diseases of the nervous system; Z91.199 Patient's noncompliance with other medical treatment and regimen due to unspecified reason
CPT/HCPCS: 36415; 70450; 71045; 80053; 80061; 80307; 80320; 81001; 82306; 82542; 82550; 82607; 82746; 83036; 83605; 83735; 83880; 84443; 84484; 85025; 85379; 86803; 87086; 87340; 93005; 96365; 96367; G0378; J2470

== ENCOUNTER 2025-03-11 12:14 | Emergency (ER) | payer MEDICAID ==
[~2025-03-11] VITALS: Ht 182.9 cm; Wt 117.8 kg
[~2025-03-11 12:14] MED LIST: LEVE500T40 PO
[2025-03-11 12:17] VITALS: TEMP 97.7
--- NOTE | 2025-03-11 13:10 | ED.PDOC ---
GI ASSESSMENT HPI Comments 35-year-old male with a history of seizures presenting complaining of diarrhea for the last 4 days, associated with left-sided abdominal pain. Patient states the pain is localized to the area where he has a surgical wound from a previous gastric sleeve surgery. He denies any edema or discoloration in the area. He states he took amoxicillin, Pepto-Bismol and Imodium with only transient relief. He denies any fever, nausea or vomiting. Chief Complaint: Abdominal Pain Time Seen by MD: 13:00 Primary Care Provider: UNKNOWN Reviewed Notes: Nurses Notes, Medications, Allergies Allergies: Coded Allergies: NO KNOWN ALLERGIES (Unverified , 09/01/24) Home Meds Reported Medications Levetiracetam (Keppra) 500 Mg Tab, 500 MG PO BID for 30 Days, MG 09/27/24 Information Source: Patient Mode of Arrival: Ambulatory Timing: Days Duration: Since onset Prehospital treatment: None Vomitus: None Stool: Watery Severity: Moderate Recent: Antibiotics Recent Hx of: Abdominal Operations Pain Location: LUQ Modifying Factors: Nothing Associated sign and symptoms: Diarrhea, Abdominal Pain Past Medical History PAST MEDICAL HISTORY: Seizures Surgical History (Other): Gastric sleeve Family History Family History: Reviewed,noncontributory to illness Social History Smoker: Non-Smoker Alcohol: Heavy Drugs: Denies Drug Use Lives In: Home Constitutional: denies: chills, diaphoresis, fatigue, fever, malaise, sweats, weakness, others EENTM: denies: blurred vision, double vision, ear bleeding, ear discharge, ear drainage, ear pain, ear ringing, eye pain, eye redness, hearing loss, mouth pain, mouth swelling, nasal discharge, nose bleeding, nose congestion, nose pain, photophobia, tearing, throat pain, throat swelling, voice changes, others Respiratory: denies: cough, hemoptysis, orthopnea, SOB at rest, shortness of breath, SOB with excertion, stridor, wheezing, others Cardiovascular: denies: chest pain, dizzy spells, diaphoresis, Dyspnea on exertion, edema, irregular heart beat, left arm pain, lightheadedness, palpitations, PND, syncope, others Gastrointestinal: reports: abdominal pain, diarrhea; denies: abdomen distended, blood streaked bowels, constipated, dysphagia, difficulty swallowing, hematemesis, melena, nausea, poor appetite, poor fluid intake, rectal bleeding, rectal pain, vomiting, others Genitourinary: denies: burning, dysuria, flank pain, frequency, hematuria, incontinence, penile discharge, penile sore, pain, testicle pain, testicle swelling, urgency, others Neurological: denies: dizziness, fainting, headache, left sided numbness, left sided weakness, numbness, paresthesia, pre-existing deficit, right sided numbness, right sided weakness, seizure, speech problems, tingling, tremors, weakness, others Musculoskeletal: denies: back pain, gout, joint pain, joint swelling, muscle pain, muscle stiffness, neck pain, others Integumetry: denies: bruises, change in color, change in hair/nails, dryness, laceration, lesions, lumps, rash, wounds, others Allergic/Immunocompromised: denies: Difficulty Healing, Frequent Infections, Hives, Itching, others Hematologic/Lymphatic: denies: anemia, blood clots, easy bleeding, easy bruising, swollen glands, others Endocrine: denies: excessive hunger, excessive sweating, excessive thirst, excessive urination, flushing, intolerance to cold, intolerance to heat, unexplained weight gain, unexplained weight loss, others Psychiatric: denies: anxiety, bipolar disorder, depression, hopeless, panic disorder, schizophrenia, sleepless, suicidal, others All Other Systems: Reviewed and Negative Physical Exam General Appearance: No Apparent Distress, Obese HEENT: Other (Pupils and face symmetric. Moist mucous membranes.) Neck: Full Range of Motion, Normal Inspection Respiratory: Lungs Clear, No Accessory Muscle Use, No Respiratory Distress, Normal Breath Sounds Cardiovascular: No Edema, No JVD, Regular Rate/Rhythm Breast Exam: Deferred Gastrointestinal: Soft, Tenderness (Left mid abdominal tenderness to palpation. No rebound or guarding.) Genitalia: Deferred Pelvic: Deferred Rectal: Deferred Extremities: Normal inspection, Normal range of motion, Non-tender, No pedal edema Neurologic: Alert (Oriented x4), Normal Affect, Normal Mood, Other (Ambulatory) Cerebellar Function: NOT DONE Reflexes: NOT DONE Skin: Dry, Normal Color, Warm Lymphatic: NOT DONE Was a procedure done? Was a procedure done?: No GI differential Dx Differential Diagnosis: Diverticular disease, Gastritis/PUD, Gastroenteritis, Inflammatory BD, Ischemic Bowel, Pancreatitis, UTI, Dehydration, Electrolyte Imbalance, Food Poisoning, Bacterial, Viral, Hypovolemia X-Ray, Labs, Meds, VS Vital Signs Date Time Temp Pulse Resp B/P (MAP) Pulse Ox O2 Delivery O2 Flow Rate FiO2 03/11/25 13:34 74 18 123/77 (92) 96 03/11/25 13:34 73 18 98 Room Air 03/11/25 12:17 97.7 70 16 127/77 95 97.7 Lab Test 03/11/25 13:20 03/11/25 12:45 Range/Units White Blood Count 6.6 4.4-10.8 10^3/uL Red Blood Count 5.37 4.5-5.90 10^6/uL Hemoglobin 15.6 13.5-17.5 g/dL Hematocrit 45.3 41.0-53.0 % Mean Corpuscular Volume 84.4 80.0-100.0 fL Mean Corpuscular Hemoglobin 29.0 28.0-32.0 pg Mean Corpuscular Hemoglobin Concent 34.4 32.0-36.0 g/dL Red Cell Distribution Width 13.8 11.8-14.3 % Platelet Count 334 140-450 10^3/uL Mean Platelet Volume 6.0 L 6.9-10.8 fL Neutrophils (%) (Auto) 51.9 37.0-80.0 % Lymphocytes (%) (Auto) 32.5 10.0-50.0 % Monocytes (%) (Auto) 14.0 H 0.0-12.0 % Eosinophils (%) (Auto) 1.2 0.0-7.0 % Basophils (%) (Auto) 0.4 0.0-2.0 % Neutrophils # (Auto) 3.4 1.6-8.6 10 ^3/uL Lymphocytes # (Auto) 2.2 0.4-5.4 10 ^3/uL Monocytes # (Auto) 0.9 0-1.3 10 ^3/uL Eosinophils # (Auto) 0.1 0-0.8 10 ^3/uL Basophils # (Auto) 0 0-0.2 10 ^3/uL Nucleated Red Blood Cells 0.2 % Sodium Level 139 136-145 mmol/L Potassium Level 3.9 3.5-5.1 mmol/L Chloride Level 104 98-107 mmol/L Carbon Dioxide Level 27 20-31 mmol/L Anion Gap 8 5-15 Blood Urea Nitrogen 10 9-23 mg/dL Creatinine 0.89 0.700-1.30 mg/dL Glomerular Filtration Rate Calc 113 >90 mL/min BUN/Creatinine Ratio 11.2 10.0-20.0 Serum Glucose 56 L 74-106 mg/dL Calcium Level 9.3 8.7-10.4 mg/dL Total Bilirubin 0.7 0.2-1.0 mg/dL Aspartate Amino Transferase (AST) 36 13-40 U/L Alanine Aminotransferase (ALT) 52 H 7-40 U/L Alkaline Phosphatase 88 46-116 U/L Total Protein 8.1 5.7-8.2 g/dL Albumin 4.7 3.2-4.8 g/dL Lipase 37 12-53 U/L Urine Color Dark-yellow Yellow Urine Clarity Clear Clear Urine pH 6.0 5.0-9.0 Urine Specific [place] 1.031 1.001-1.035 Urine Protein Trace H Negative Urine Ketones Trace Negative Urine Blood Negative Negative /uL Urine Nitrite Negative Negative Urine Bilirubin Negative Negative Urine Urobilinogen Normal Negative mg/dL Urine Leukocyte Esterase Negative Negative /uL Urine RBC 1 0 - 3 /hpf Urine Microscopic WBC 1 0-3 /HPF Urine Squamous Epithelial Cells Few <5 /hpf Urine Bacteria None seen None Seen /hpf Urine Mucus Few None Seen Urine Glucose Normal Normal mg/dL [place] [address] Ph: [phone] DIAGNOSTIC IMAGING Diagnostic Imaging Report : [id number] Signed PATIENT: TERI RAUSCH ACCT: [id number] UNIT: [id number] : 1990 LOC: ER ROOM / BED: / AGE / SEX: 35 / M ADM STATUS: REG ER SERVICE 1304 ORDERING PHYSICIAN: BENJAMIN PRESTON MD PROCEDURE(s): ABPL - CT AB PEL WO CON-NO ORAL OR IV REASON: LUQ pain diarrhea x 4d ORDER NUMBER(s): [id number], ACCESSION NUMBER(s): [id number] EXAM: CT CT AB PEL WO CON-NO ORAL OR IV HISTORY: LUQ pain diarrhea x 4d COMPARISON: None TECHNIQUE: Helical CT images of the abdomen and pelvis were performed without IV contrast. Sagittal and coronal reformatted images were obtained. This CT exam was performed using one or more of the following dose reduction techniques: Automated exposure control, adjustment of the mA and/or kv according to patient size, or the use of iterative reconstruction techniques. Radiation Dose: Abdomen/Pelvis: CTDIvol 25.34 mGy, DLP 1740.8 mGy*cm. FINDINGS: CT abdomen: There are multiple subcentimeter noncalcified pulmonary nodules in the right lung base measuring 3 mm in the right middle lobe (image 7, series 2); 4 mm in the right middle lobe (image 10, series 2); 2.5 mm in the right lower lobe (image 5, series 2). The heart is borderline enlarged. The noncontrast spleen, pancreas, left kidney, and bilateral adrenal glands are unremarkable. There is a right renal inferior pole exophytic cyst. The liver measures 21 cm longitudinal. The gallbladder is distended up to 5.6 cm in width x 13 cm in length, without visualization of gallstones. No abdominal aortic aneurysm. There are multiple mildly prominent lymph nodes in the central mesenteric fat. There are postoperative changes of gastric sleeve. CT pelvis: No abnormal bowel dilatation, free air, or free fluid. The appendix does not appear dilated or inflamed. The prostate is mildly enlarged. The urinary bladder is decompressed. There is a left os acetabulum. There is moderate Lumbar degenerative disc disease. There are chronic appearing superior endplate compression fractures of T11 and L1. IMPRESSION: 1. Subcentimeter noncalcified pulmonary nodules in the right lung base. Recommend outpatient CT follow-up according to Fleischner society guidelines. 2. Hepatomegaly. 3. Gallbladder hydrops without visualization of gallstones. This appearance can be seen with acalculous cholecystitis. Consider follow-up hepatobiliary scintigraphy and/or right upper quadrant ultrasound for better characterization. 4. No evidence of bowel obstruction, acute appendicitis, or other acute process in the abdomen or pelvis. ATED BY: PAULA RAMIREZ MD DICTATED DATE/TIME: 03/11/25 1343 SIGNED BY: PAULA RAMIREZ MD SIGNED DATE/TIME: 03/11/25 1343 CC: X-Ray, Labs, Meds, VS Comment 35-year-old male with a history of seizures and gastric sleeve surgery complaining of diarrhea for the last 4 days associated with left-sided abdominal pain Vitals unremarkable Exam remarkable for left mid abdominal tenderness to palpation Rhythm strip independently interpreted by me: Sinus rhythm, rate 70, no ectopy. CT abdomen and pelvis remarkable for gallbladder hydrops Right upper quadrant ultrasound remarkable for gallstones, no other acute abnormality CBC, CMP, UA and lipase unremarkable Patient declined any pain medication in the ED. On re-evaluation, patient was well-appearing with stable vitals. He appears stable for discharge with close outpatient follow-up with his primary doctor. Rx Cipro, Flagyl. Continue Imodium. Time of 1ST Reevaluation: 13:30 Reevaluation 1ST: Unchanged Patient Education/Counseling: Diagnosis, Treatment Family Education/Counseling: No Family Present SEPSIS Sepsis Screen Date sepsis recognized/suspect: Mar 11, 2025 Time Sepsis recognized/suspect: 1228 Recent Procedure: No On Antibiotic Therapy: No Respiratory Rate >20: No Heart Rate >90: No Temp<36 C (96.8 F) or >38.3 C: No SBP <90 or MAP <65 mmHG: No New Acute Mental Status Change: No Is the patient on CPAP, BIPAP,: No Physician Orders Ct Ab Pel Wo Con-No Oral Or Iv (03/11/25 13:04) Abdomen Limited (03/11/25 14:30) Vital Signs Date Time Temp Pulse Resp B/P (MAP) Pulse Ox O2 Delivery O2 Flow Rate FiO2 03/11/25 13:34 74 18 123/77 (92) 96 03/11/25 13:34 73 18 98 Room Air 03/11/25 12:17 97.7 70 16 127/77 95 97.7 Laboratory Tests Test 03/11/25 13:20 White Blood Count 6.6 10^3/uL (4.4-10.8) Departure 1 Departure Time of Disposition: 14:45 Impression: Primary Impression: Diarrhea Qualified Codes: R19.7 - Diarrhea, unspecified Disposition: 01 HOME / SELF CARE / HOMELESS Condition: Stable Additional Instructions: Your blood and urine tests were unremarkable. Your CT scan and ultrasound showed you have gallbladder stones. This is unlikely to be the cause of your sy mptoms, as your gallbladder is on the right side and your pain is on the left side. No other significant finding related to your symptoms was seen on CT or ultrasound. I have prescribed antibiotics to cover a presumed intestinal infection and pain medication to take as needed. Continue Imodium as needed for diarrhea. Today's ER workup does not necessarily indicate a clean bill of health, so you must follow up with your primary doctor in 1-2 days. Return to ER for persistent or worsening symptoms. Below are your CT and ultrasound reports to show your primary doctor when you follow-up. [place] [address] Ph: [phone] DIAGNOSTIC IMAGING Diagnostic Imaging Report : [id number] Signed PATIENT: TERI RAUSCH ACCT: [id number] UNIT: [id number] : 1990 LOC: ER ROOM / BED: / AGE / SEX: 35 / M ADM STATUS: REG ER SERVICE 1304 ORDERING PHYSICIAN: BENJAMIN PRESTON MD PROCEDURE(s): ABPL - CT AB PEL WO CON-NO ORAL OR IV REASON: LUQ pain diarrhea x 4d ORDER NUMBER(s): [id number], ACCESSION NUMBER(s): [id number] EXAM: CT CT AB PEL WO CON-NO ORAL OR IV HISTORY: LUQ pain diarrhea x 4d COMPARISON: None TECHNIQUE: Helical CT images of the abdomen and pelvis were performed without IV contrast. Sagittal and coronal reformatted images were obtained. This CT exam was performed using one or more of the following dose reduction techniques: Automated exposure control, adjustment of the mA and/or kv according to patient size, or the use of iterative reconstruction techniques. Radiation Dose: Abdomen/Pelvis: CTDIvol 25.34 mGy, DLP 1740.8 mGy*cm. FINDINGS: CT abdomen: There are multiple subcentimeter noncalcified pulmonary nodules in the right lung base measuring 3 mm in the right middle lobe (image 7, series 2); 4 mm in the right middle lobe (image 10, series 2); 2.5 mm in the right lower lobe (image 5, series 2). The heart is borderline enlarged. The noncontrast spleen, pancreas, left kidney, and bilateral adrenal glands are unremarkable. There is a right renal inferior pole exophytic cyst. The liver measures 21 cm longitudinal. The gallbladder is distended up to 5.6 cm in width x 13 cm in length, without visualization of gallstones. No abdominal aortic aneurysm. There are multiple mildly prominent lymph nodes in the central mesenteric fat. There are postoperative changes of gastric sleeve. CT pelvis: No abnormal bowel dilatation, free air, or free fluid. The appendix does not appear dilated or inflamed. The prostate is mildly enlarged. The urinary bladder is decompressed. There is a left os acetabulum. There is moderate Lumbar degenerative disc disease. There are chronic appearing superior endplate compression fractures of T11 and L1. IMPRESSION: 1. Subcentimeter noncalcified pulmonary nodules in the right lung base. Recommend outpatient CT follow-up according to Fleischner society guidelines. 2. Hepatomegaly. 3. Gallbladder hydrops without visualization of gallstones. This appearance can be seen with acalculous cholecystitis. Consider follow-up hepatobiliary scintigraphy and/or right upper quadrant ultrasound for better characterization. 4. No evidence of bowel obstruction, acute appendicitis, or other acute process in the abdomen or pelvis. [place] [address] Ph: [phone] DIAGNOSTIC IMAGING Diagnostic Imaging Report : [id number] Signed PATIENT: TERI RAUSCH ACCT: [id number] UNIT: [id number] : 1990 LOC: ER ROOM / BED: / AGE / SEX: 35 / M ADM STATUS: REG ER SERVICE 1430 ORDERING PHYSICIAN: BENJAMIN PRESTON MD PROCEDURE(s): ABDL - ABDOMEN LIMITED REASON: abd pain diarrhea eval for acalculous cholecystitis ORDER NUMBER(s): [id number], ACCESSION NUMBER(s): [id number] INDICATION: abd pain diarrhea eval for acalculous cholecystitis TECHNIQUE: Multiple real-time sonographic images of the abdomen were obtained. COMPARISON: None FINDINGS: The liver is heterogeneous in echogenicity. The liver measures 21cm. No intrahepatic biliary ductal dilatation is noted. The gallbladder wall measures 0.2 cm and is unremarkable. Gallstones are present.. The common duct measures 0.5 cm and is unremarkable. No pericholecystic fluid is noted. The right kidney measures 11cm. No hydronephrosis. The pancreas is not well visualized due to obscuration from bowel gas. The visualized portions of the IVC and aorta are grossly unremarkable. IMPRESSION: Gallstones. Hepatic steatosis hepatomegaly e-Prescriptions Loperamide Hcl (Imodium) 2 Mg Cp 2 MG PO Q6HP PRN, #20 CAP Prn diarrhea Prov: BENJAMIN PRESTON MD 03/11/25 Dicyclomine Hcl (BENTYL CAPSULE) 10 Mg Cp 2 CAP PO Q6HP PRN, #30 CAP 11 Refills Prn abdominal pain Prov: BENJAMIN PRESTON MD 03/11/25 Metronidazole (Flagyl) 500 Mg Tab 1 TAB PO TID for 10 Days, #30 TAB Prov: BENJAMIN PRESTON MD 03/11/25 Ciprofloxacin Hcl (Cipro) 500 Mg Tab 1 TAB PO BID for 10 Days, #20 TAB Prov: BENJAMIN PRESTON MD 03/11/25 Discharged With: Relative Critical Care Note Critical Care Time?: No Stability Stability form required: No Heart Score Heart Score: Heart Score Response (Comments) Value History N/A 0 EKG N/A 0 Age N/A 0 Risk Factors N/A 0 Troponin N/A 0 Total 0 I personally scribed for BENJAMIN PRESTON MD ([email or web address]) on 03/11/25 at 13:10. Electronically submitted by Tanesha Beltran ([email or web address]). I personally scribed for BENJAMIN PRESTON [email or web address]) on 03/11/25 at 13:47. Electronically submitted by Tanesha Beltran ([email or web address]). BENJAMIN PRESTON MD Mar 11, 2025 13:10
[2025-03-11 13:34] VITALS: BP 123/77; PULSE 73; RESP 18; O2SAT 98
--- NOTE | 2025-03-11 13:45 | DVH ---
EXAM: CT CT AB PEL WO CON-NO ORAL OR IV HISTORY: LUQ pain diarrhea x 4d COMPARISON: None TECHNIQUE: Helical CT images of the abdomen and pelvis were performed without IV contrast. Sagittal a nd coronal reformatted images were obtained. This CT exam was performed using one or more of the foll owing dose reduction techniques: Automated exposure control, adjustment of the mA and/or kv according to patient size, or the use of iterative reconstruction techniques. Radiation Dose: Abdomen/Pelvis: CTDIvol 25.34 mGy, DLP 1740.8 mGy*cm. FINDINGS: CT abdomen: There are multiple subcentimeter noncalcified pulmonary nodules in the right lung base me asuring 3 mm in the right middle lobe (image 7, series 2); 4 mm in the right middle lobe (image 10, s eries 2); 2.5 mm in the right lower lobe (image 5, series 2). The heart is borderline enlarged. The n oncontrast spleen, pancreas, left kidney, and bilateral adrenal glands are unremarkable. There is a r ight renal inferior pole exophytic cyst. The liver measures 21 cm longitudinal. The gallbladder is di stended up to 5.6 cm in width x 13 cm in length, without visualization of gallstones. No abdominal ao rtic aneurysm. There are multiple mildly prominent lymph nodes in the central mesenteric fat. There a re postoperative changes of gastric sleeve. CT pelvis: No abnormal bowel dilatation, free air, or free fluid. The appendix does not appear dilate d or inflamed. The prostate is mildly enlarged. The urinary bladder is decompressed. There is a left os acetabulum. There is moderate Lumbar degenerative disc disease. There are chronic appearing sup erior endplate compression fractures of T11 and L1. IMPRESSION: 1. Subcentimeter noncalcified pulmonary nodules in the right lung base. Recommend outpatient CT foll ow-up according to Fleischner society guidelines. 2. Hepatomegaly. 3. Gallbladder hydrops without visualization of gallstones. This appearance can be seen with acalcul ous cholecystitis. Consider follow-up hepatobiliary scintigraphy and/or right upper quadrant ultraso und for better characterization. 4. No evidence of bowel obstruction, acute appendicitis, or other acute process in the abdomen or pel vis.
[2025-03-11 13:53] LABS: Hematocrit 45.3 % (41.0-53.0); Hemoglobin 15.6 g/dL (13.5-17.5); Mean Corpuscular Hemoglobin 29.0 pg (28.0-32.0); Mean Corpuscular Volume 84.4 fL (80.0-100.0); Nucleated Red Blood Cells % 0.2 %
[2025-03-11 14:04] LABS: Albumin 4.7 g/dL (3.2-4.8); Alkaline Phosphatase 88 U/L (46-116); BUN/Creatinine Ratio 11.2 (10.0-20.0); Blood Urea Nitrogen 10 mg/dL (9-23); Calcium 9.3 mg/dL (8.7-10.4); Carbon Dioxide 27 mmol/L (20-31); Lipase 37 U/L (12-53); Total Protein 8.1 g/dL (5.7-8.2)
[2025-03-11 14:05] LABS: Bilirubin, Total 0.7 mg/dL (0.2-1.0)
[2025-03-11 14:10] LABS: Urine Protein, UAD TRACE (Negative)
[2025-03-11 14:14] LABS: Alanine Aminotransferase 52 U/L (7-40); Anion Gap 8 (5-15); Chloride 104 mmol/L (98-107); Glucose 56 mg/dL (74-106); Potassium 3.9 mmol/L (3.5-5.1); Sodium 139 mmol/L (136-145)
--- NOTE | 2025-03-11 15:05 | DVH ---
INDICATION: abd pain diarrhea eval for acalculous cholecystitis TECHNIQUE: Multiple real-time sonographic images of the abdomen were obtained. COMPARISON: None FINDINGS: The liver is heterogeneous in echogenicity. The liver measures 21cm. No intrahepatic bilia ry ductal dilatation is noted. The gallbladder wall measures 0.2 cm and is unremarkable. Gallstones are present.. The common duct m easures 0.5 cm and is unremarkable. No pericholecystic fluid is noted. The right kidney measures 11cm. No hydronephrosis. The pancreas is not well visualized due to obscuration from bowel gas. The visualized portions of the IVC and aorta are grossly unremarkable. IMPRESSION: Gallstones. Hepatic steatosis hepatomegaly
[2025-03-11] MEDS ORDERED: DICY10CA PO (15:32)
[2025-03-11] MEDS ORDERED: CIPR-173 PO (15:32)
[2025-03-11] MEDS ORDERED: METR-344 PO (15:32)
[2025-03-11] MEDS ORDERED: LOPE2CAP16 PO (15:32)
== END 2025-03-11 15:53 | disposition home or self-care (01) ==
LOC: ER 12:14
DX: R19.7 Diarrhea, unspecified (principal); R56.9 Unspecified convulsions; Z79.899 Other long term (current) drug therapy; Z98.890 Other specified postprocedural states; Z98.84 Bariatric surgery status
CPT/HCPCS: 36415; 74176; 76705; 80053; 81001; 83690; 85025

== ENCOUNTER 2025-05-27 01:41 | Inpatient (IN) | payer MEDICAID ==
[~2025-05-27] VITALS: Ht 185.4 cm; Wt 169.8 kg
[~2025-05-27 01:41] MED LIST changes: +CIPR-173 PO; +DICY10CA PO; +LOPE2CAP16 PO; +METR-344 PO
--- NOTE | 2025-05-27 01:54 | ECG ---
[facility] Test Date: 2025-05-27 Test Time: 01:50:01 Pat Name: TERI RAUSCH Department: ED Room: 0236 Gender: M [place]erry Operator: YAW : 1990 Requested By: VAN JAMES Order Number: [id number] Reading MD: Vishal Vazquez Measurements Intervals [place] Rate: 61 P: -50 [place]: 197 QRS: 69 QRSD: 114 T: 72 QT: 415 QTc: 418 Interpretive Statements Sinus or ectopic atrial rhythm Borderline intraventricular conduction delay Abnormal R-wave progression, early transition Electronically Signed On 05-28-2025 17:46:58 PST by Vishal Vazquez Please click the below link to view image of tracing.
--- NOTE | 2025-05-27 02:00 | ED.PDOC ---
History of Present Illness HPI Comments 35-year-old, morbidly obese male presents with chief complaint of midsternal chest pain, with associated nausea and chills. Patient endorses on sudden, unprovoked, and atraumatic onset of pressure-like pain 1.5 hours ago. Pain, initially, started in his lower back before moving to his midsternum. Significant history for epileptic seizures and gastric sleeve and family history of diabetes and liver disease. No recent elements, injuries, sick contacts, strenuous activities, stressors, or further permanent events/lifestyle changes reported. He denies having any vomiting, shortness of breath, fever, or further associated symptoms. Chief Complaint: Chest Pain Time Seen by MD: 01:50 Primary Care Provider: UNKNOWN Reviewed Notes: Nurses Notes, Medications, Allergies Allergies: Coded Allergies: NO KNOWN ALLERGIES (Unverified , 09/01/24) Home Meds Active Scripts Loperamide Hcl (Imodium) 2 Mg Cp, 2 MG PO Q6HP PRN, #20 CAP Prn diarrhea Prov:BENJAMIN PRESTON MD 03/11/25 Dicyclomine Hcl (BENTYL CAPSULE) 10 Mg Cp, 2 CAP PO Q6HP PRN, #30 CAP 11 Refills Prn abdominal pain Prov:BENJAMIN PRESTON MD 03/11/25 Metronidazole (Flagyl) 500 Mg Tab, 1 TAB PO TID for 10 Days, #30 TAB Prov:BENJAMIN PRESTON MD 03/11/25 Ciprofloxacin Hcl (Cipro) 500 Mg Tab, 1 TAB PO BID for 10 Days, #20 TAB Prov:BENJAMIN PRESTON MD 03/11/25 Reported Medications Levetiracetam (Keppra) 500 Mg Tab, 500 MG PO BID for 30 Days, MG 09/27/24 Information Source: Patient Mode of Arrival: Ambulatory Severity: Moderate Timing: Hours Duration: Since onset Prehospital treatment: None Past Medical History PAST MEDICAL HISTORY: Seizures (Epilepsy) Past Medical History (Other): Morbid obesity Surgical History (Other): Gastric sleeve Family History Family History: Reviewed,noncontributory to illness Social History Smoker: Non-Smoker Alcohol: Heavy Drugs: Denies Drug Use Lives In: Home Constitutional: reports: chills; denies: diaphoresis, fatigue, fever, malaise, sweats, weakness, others EENTM: denies: blurred vision, double vision, ear bleeding, ear discharge, ear drainage, ear pain, ear ringing, eye pain, eye redness, hearing loss, mouth pain, mouth swelling, nasal discharge, nose bleeding, nose congestion, nose pain, photophobia, tearing, throat pain, throat swelling, voice changes, others Respiratory: denies: cough, hemoptysis, orthopnea, SOB at rest, shortness of breath, SOB with excertion, stridor, wheezing, others Cardiovascular: reports: chest pain; denies: dizzy spells, diaphoresis, Dyspnea on exertion, edema, irregular heart beat, left arm pain, lightheadedness, palpitations, PND, syncope, others Gastrointestinal: denies: abdomen distended, abdominal pain, blood streaked bowels, constipated, diarrhea, dysphagia, difficulty swallowing, hematemesis, melena, nausea, poor appetite, poor fluid intake, rectal bleeding, rectal pain, vomiting, others Genitourinary: denies: burning, dysuria, flank pain, frequency, hematuria, incontinence, penile discharge, penile sore, pain, testicle pain, testicle swelling, urgency, others Neurological: denies: dizziness, fainting, headache, left sided numbness, left sided weakness, numbness, paresthesia, pre-existing deficit, right sided numbness, right sided weakness, seizure, speech problems, tingling, tremors, weakness, others Musculoskeletal: denies: back pain, gout, joint pain, joint swelling, muscle pain, muscle stiffness, neck pain, others Integumetry: denies: bruises, change in color, change in hair/nails, dryness, laceration, lesions, lumps, rash, wounds, others Allergic/Immunocompromised: denies: Difficulty Healing, Frequent Infections, Hives, Itching, others Hematologic/Lymphatic: denies: anemia, blood clots, easy bleeding, easy bruising, swollen glands, others Endocrine: denies: excessive hunger, excessive sweating, excessive thirst, excessive urination, flushing, intolerance to cold, intolerance to heat, unexplained weight gain, unexplained weight loss, others Psychiatric: denies: anxiety, bipolar disorder, depression, hopeless, panic disorder, schizophrenia, sleepless, suicidal, others All Other Systems: Reviewed and Negative Physical Exam General Appearance: Moderate Distress, Obese HEENT: Normal ENT Inspection, Pharynx Normal, TMs Normal Neck: Full Range of Motion, Non-Tender, Normal, Normal Inspection Respiratory: Chest Non-Tender, Lungs Clear, No Accessory Muscle Use, No Respiratory Distress, Normal Breath Sounds Cardiovascular: No Edema, No JVD, No Murmur, No Gallop, Normal Peripheral Pulses, Regular Rate/Rhythm Breast Exam: Deferred Gastrointestinal: No Organomegaly, No Pulsatile Mass, Normal Bowel Sounds, RUQ, Soft, Tenderness Genitalia: Deferred Pelvic: Deferred Rectal: Deferred Extremities: No calf tenderness, Normal capillary refill, Normal inspection, Normal range of motion, Non-tender, No pedal edema Musculoskeletal : Apperance: Normal Neurologic: Alert, supervisor partial denture department II-XII nml as Tested, No Motor Deficits, Normal Affect, Normal Mood, No Sensory Deficits Cerebellar Function: Normal Reflexes: Normal Skin: Dry, Normal Color, Warm Lymphatic: No Adenopathy Was a procedure done? Was a procedure done?: No EKG EKG : Pulse Rate (adult): 61 [place]: Normal Cardiac Rhythm: NSR Block: None Hypertrophy: None ST: Normal Differential Dx Considerations may include: ME, PE, ACS, angina, anxiety, cholelithiasis, cholecystitis, gastritis, among others X-Ray, Labs, Meds, VS Vital Signs Date Time Temp Pulse Resp B/P (MAP) Pulse Ox O2 Delivery O2 Flow Rate FiO2 05/27/25 02:48 63 05/27/25 02:00 61 05/27/25 01:54 98.7 60 20 150/84 99 98.7 05/27/25 01:50 61 Lab Test 05/27/25 02:45 Range/Units White Blood Count 14.1 H 4.4-10.8 10^3/uL Red Blood Count 5.37 4.5-5.90 10^6/uL Hemoglobin 15.4 13.5-17.5 g/dL Hematocrit 45.3 41.0-53.0 % Mean Corpuscular Volume 84.4 80.0-100.0 fL Mean Corpuscular Hemoglobin 28.7 28.0-32.0 pg Mean Corpuscular Hemoglobin Concent 34.0 32.0-36.0 g/dL Red Cell Distribution Width 13.9 11.8-14.3 % Platelet Count 349 140-450 10^3/uL Mean Platelet Volume 6.0 L 6.9-10.8 fL Neutrophils (%) (Auto) 79.2 37.0-80.0 % Lymphocytes (%) (Auto) 15.5 10.0-50.0 % Monocytes (%) (Auto) 4.8 0.0-12.0 % Eosinophils (%) (Auto) 0.2 0.0-7.0 % Basophils (%) (Auto) 0.3 0.0-2.0 % Neutrophils # (Auto) 11.1 H 1.6-8.6 10 ^3/uL Lymphocytes # (Auto) 2.2 0.4-5.4 10 ^3/uL Monocytes # (Auto) 0.7 0-1.3 10 ^3/uL Eosinophils # (Auto) 0 0-0.8 10 ^3/uL Basophils # (Auto) 0 0-0.2 10 ^3/uL Nucleated Red Blood Cells 0.1 % Sodium Level 139 136-145 mmol/L Potassium Level 4.0 3.5-5.1 mmol/L Chloride Level 101 98-107 mmol/L Carbon Dioxide Level 27 20-31 mmol/L Anion Gap 11 5-15 Blood Urea Nitrogen 16 9-23 mg/dL Creatinine 0.98 0.700-1.30 mg/dL Glomerular Filtration Rate Calc 102 >90 mL/min BUN/Creatinine Ratio 16.3 10.0-20.0 Serum Glucose 117 H 74-106 mg/dL Calcium Level 9.3 8.7-10.4 mg/dL Troponin I High Sensitivity 5 </=54 ng/L Lipase 41 12-53 U/L Current Medications Medications (Trade) Dose Ordered Sig/Perry Route Start Time Stop Time Status Last Admin Pantoprazole Sodium (Protonix) 40 mg ONCE ONCE IV 05/27/25 02:00 05/27/25 02:01 DC 05/27/25 03:01 Ondansetron HCl (Zofran) 4 mg ONCE ONCE IV 05/27/25 02:00 05/27/25 02:01 DC 05/27/25 03:01 IV Hep-Lock was established The patient was given Protonix 40 mg IV push The patient was given Zofran 4 mg IV push The patient is being given morphine 4 mg IV push The CBC shows an elevated white blood cell count of 14.1 The rest of the CBC and chemistry panel are within normal limits The lipase is within normal limits At this time, the patient is being admitted Images Reviewed?: Images reviewed and evaluated by me Time of 1ST Reevaluation: 02:30 Reevaluation 1ST: Unchanged Patient Education/Counseling: Diagnosis, Treatment, Prognosis Family Education/Counseling: No Family Present SEPSIS Sepsis Screen Physician Orders Electrocardigram (05/27/25 04:52) Chest Portable (05/27/25 01:52) Urinalysis (05/27/25 01:52) Troponin-I Hs (05/27/25 02:52) Troponin-I Hs (05/27/25 04:52) Gallbladder (05/27/25 01:54) Heplock Iv (05/27/25 ) Vital Signs Date Time Temp Pulse Resp B/P (MAP) Pulse Ox O2 Delivery O2 Flow Rate FiO2 05/27/25 02:48 63 05/27/25 02:00 61 05/27/25 01:54 98.7 60 20 150/84 99 98.7 05/27/25 01:50 61 Laboratory Tests Test 05/27/25 02:45 White Blood Count 14.1 10^3/uL (4.4-10.8) H Medications Medications Dose Ordered Sig/Perry Route Start Time Stop Time Status Last Admin Dose Admin Ondansetron HCl 4 mg ONCE ONCE IV 05/27/25 02:00 05/27/25 02:01 DC 05/27/25 03:01 Pantoprazole Sodium 40 mg ONCE ONCE IV 05/27/25 02:00 05/27/25 02:01 DC 05/27/25 03:01 Departure 1 Departure Time of Disposition: 03:27 Impression: Primary Impression: Intractable abdominal pain Additional Impression: Cholelithiasis Qualified Codes: K80.20 - Calculus of gallbladder without cholecystitis without obstruction Disposition: 09 ADMITTED INPATIENT Admit to: Med Surg Condition: Fair Critical Care Note Critical Care Time?: No Stability Stability form required: Yes Unstable for transfer: ED Physician Assesment (Clinical assesment) Heart Score Heart Score: Heart Score Response (Comments) Value History Moderate Suspicious 1 EKG Normal 0 Age <45 0 Risk Factors 1 or 2 risk factors 1 Troponin N/A 0 Total 2 I personally scribed for VAN JAMES MD ([email or web address]) on 05/27/25 at 02:00. Electronically submitted by Eamon Saeed ([email or web address]). VAN JAMES MD May 27, 2025 02:00
--- NOTE | 2025-05-27 02:49 | ECG ---
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
[2025-05-27 02:59] LABS: Hematocrit 45.3 % (41.0-53.0); Hemoglobin 15.4 g/dL (13.5-17.5); Mean Corpuscular Hemoglobin 28.7 pg (28.0-32.0); Mean Corpuscular Volume 84.4 fL (80.0-100.0); Nucleated Red Blood Cells % 0.1 %
[2025-05-27] MEDS: PANTOPRAZOLE 40 MG/10 ML VIAL INJ IV ONE (03:01)
[2025-05-27] MEDS: ONDANSETRON HCL 4 MG/2 ML VIAL IV ONE (03:01)
--- NOTE | 2025-05-27 03:04 | DVH ---
CHEST RADIOGRAPH Indication: chest pain Technique: Single frontal view of the chest was obtained Comparison: XY CHEST PORTABLE on DOS: 09/26/24 IMPRESSION: Heart appears normal in size. The lungs appear clear without focal airspace opacity, effusion, or pneumothorax. Mild pulmonary vascular congestion.
[2025-05-27 03:10] LABS: Calcium 9.3 mg/dL (8.7-10.4); Carbon Dioxide 27 mmol/L (20-31)
[2025-05-27 03:15] LABS: BUN/Creatinine Ratio 16.3 (10.0-20.0); Blood Urea Nitrogen 16 mg/dL (9-23); Lipase 41 U/L (12-53)
[2025-05-27 03:16] LABS: Glucose 117 mg/dL (74-106)
--- NOTE | 2025-05-27 03:16 | DVH ---
INDICATION: pain TECHNIQUE: Real time ultrasonography of the right upper quadrant was performed. COMPARISON: US ABDOMEN LIMITED on DOS: 04/28/25, US ABDOMEN LIMITED on DOS: 03/11/25 FINDINGS: Possible increased echogenicity of the liver, however difficult to assess given exam limitation. The liver estimates 22 cm. The gallbladder is filled with calculi and sludge. The common bile duct measures 0.5 cm. There is no evidence of wall thickening or pericholecystic fluid. Gallbladder wall measures 0.2 cm. Pancreas is obscured by overlying bowel gas. The right kidney measures 12.3 cm and appears unremarkable. IMPRESSION: Cholelithiasis and gallbladder sludge without pericholecystic fluid or wall thickening. Difficult to assess hepatic echotexture. Liver appears enlarged.
[2025-05-27 03:20] LABS: Anion Gap 11 (5-15); Chloride 101 mmol/L (98-107); Potassium 4.0 mmol/L (3.5-5.1); Sodium 139 mmol/L (136-145)
[2025-05-27 03:35] LABS: Urine Protein, UAD TRACE (Negative)
[2025-05-27] MEDS: MORPHINE SULFATE 4 MG/ML SYR/VIAL IV ONE (03:51)
[2025-05-27 04:00] VITALS: PULSE 63
[2025-05-27] MEDS ORDERED: ONDANSETRON HCL 4 MG/2 ML VIAL IV PRN (04:15)
--- NOTE | 2025-05-27 04:27 | DVHHPRES ---
History of Present Illness Resident Creating Document: MECHELLE PAYTON RESIDENT History of Present Illness This is a 35-year-old male with past medical history of seizure, gastric sleeve surgery on July 2023, morbid obesity, prediabetes, hyperlipidemia, vitamin-D deficiency came to ER with a complaint of right-sided chest pain which radiates to sternal area, started around 9:00 p.m. day before admission which suddenly onset, 8/10 intensity, aggravated after eating spicy and fatty foods, no relieving factors. Patient drinking alcohol occasionally and last drink 2 days back. Patient compliance with medication. Currently denies any fever, SOB, headache, dysuria or any other acute distress. Past medical history: As above Past surgical history: Gastric sleeve surgery on July 2023 Personal history: Denies any smoking, ETOH use Family history: Nothing activity PCP: [facility]. Allergy: No known allergy Review of Systems Constitutional: Yes: Weakness, Malaise; No: Fever, Chills, Sweats, Other Eyes: No: Pain, Vision change, Conjunctivae inflammation, Eyelid inflammation, Other, Redness ENT: No: Ear pain, Ear discharge, Nose pain, Nose discharge, Nose congestion, Mouth pain, Mouth swelling, Throat pain, Throat swelling, Other Respiratory: No: Cough, Dry, Shortness of breath, SOB with excertion, Wheezing, Hemoptysis, Pleuritic Pain, Sputum, Wheezing, Other Cardiovascular: No: Chest Pain, Palpitations, Orthopnea, Paroxysmal Noc. Dyspnea, Edema, Lt Headedness, Other Gastrointestinal: Nausea, Abdominal Pain; No: Vomiting, Diarrhea, Constipation, Melena, Hematochezia, Other Genitourinary: No Dysuria, No Frequency, No Incontinence, No Hematuria, No Retention, No Other Musculoskeletal: No: other, neck pain, shoulder pain, arm pain, back pain, hand pain, leg pain, foot pain Skin: No: Rash, Lesions, Jaundice, Bruising, Other Neurological: No: Weakness, Numbness, Incoordination, Change in speech, Confusion, Seizures, Other Allergies: Coded Allergies: NO KNOWN ALLERGIES (Unverified , 09/01/24) Exam Vital Signs Vital Signs Date Time Temp Pulse Resp B/P (MAP) Pulse Ox O2 Delivery O2 Flow Rate FiO2 05/27/25 04:00 63 Room Air* 0 21 05/27/25 03:51 16 147/87 (107) 95 05/27/25 01:54 98.7 98.7 General Appearance: Alert, Oriented X3, Cooperative, moderate distress HEENT: Atraumatic, PERRLA, EOMI Respiratory: Clear to auscultation, Normal air movement Cardiovascular: Regular rate, Normal S1, Normal S2 Abdominal: Normal bowel sounds, Soft, Other (Tolentino's sign positive) Extremities: No clubbing, No cyanosis, No edema Skin: No rashes, No breakdown, No significant lesion Neuro: Normal gait, Normal speech, Strength at 5/5 X4 ext, Normal tone Psych/Mental Status: Mental status NL, Mood NL Labs/Xrays Labs Test 05/27/25 03:35 05/27/25 03:15 05/27/25 02:45 Range/Units Urine Color Yellow Yellow Urine Clarity Clear Clear Urine pH 5.5 5.0-9.0 Urine Specific [place] 1.031 1.001-1.035 Urine Protein Trace H Negative Urine Ketones Trace Negative Urine Blood Negative Negative /uL Urine Nitrite Negative Negative Urine Bilirubin Negative Negative Urine Urobilinogen 2 H Negative mg/dL Urine Leukocyte Esterase Negative Negative /uL Urine RBC 1 0 - 3 /hpf Urine Microscopic WBC 1 0-3 /HPF Urine Squamous Epithelial Cells Few <5 /hpf Urine Bacteria None seen None Seen /hpf Urine Glucose Normal Normal mg/dL White Blood Count 14.1 H 4.4-10.8 10^3/uL Red Blood Count 5.37 4.5-5.90 10^6/uL Hemoglobin 15.4 13.5-17.5 g/dL Hematocrit 45.3 41.0-53.0 % Mean Corpuscular Volume 84.4 80.0-100.0 fL Mean Corpuscular Hemoglobin 28.7 28.0-32.0 pg Mean Corpuscular Hemoglobin Concent 34.0 32.0-36.0 g/dL Red Cell Distribution Width 13.9 11.8-14.3 % Platelet Count 349 140-450 10^3/uL Mean Platelet Volume 6.0 L 6.9-10.8 fL Neutrophils (%) (Auto) 79.2 37.0-80.0 % Lymphocytes (%) (Auto) 15.5 10.0-50.0 % Monocytes (%) (Auto) 4.8 0.0-12.0 % Eosinophils (%) (Auto) 0.2 0.0-7.0 % Basophils (%) (Auto) 0.3 0.0-2.0 % Neutrophils # (Auto) 11.1 H 1.6-8.6 10 ^3/uL Lymphocytes # (Auto) 2.2 0.4-5.4 10 ^3/uL Monocytes # (Auto) 0.7 0-1.3 10 ^3/uL Eosinophils # (Auto) 0 0-0.8 10 ^3/uL Basophils # (Auto) 0 0-0.2 10 ^3/uL Nucleated Red Blood Cells 0.1 % Sodium Level 139 136-145 mmol/L Potassium Level 4.0 3.5-5.1 mmol/L Chloride Level 101 98-107 mmol/L Carbon Dioxide Level 27 20-31 mmol/L Anion Gap 11 5-15 Blood Urea Nitrogen 16 9-23 mg/dL Creatinine 0.98 0.700-1.30 mg/dL Glomerular Filtration Rate Calc 102 >90 mL/min BUN/Creatinine Ratio 16.3 10.0-20.0 Serum Glucose 117 H 74-106 mg/dL Calcium Level 9.3 8.7-10.4 mg/dL Lipase 41 12-53 U/L SEPSIS Sepsis Screen Date sepsis recognized/suspect: May 27, 2025 Time Sepsis recognized/suspect: 015 Recent Procedure: No On Antibiotic Therapy: No Respiratory Rate >20: No Heart Rate >90: No Temp<36 C (96.8 F) or >38.3 C: No SBP <90 or MAP <65 mmHG: No New Acute Mental Status Change: No Is the patient on CPAP, BIPAP,: No Physician Orders Electrocardigram (05/27/25 04:52) Chest Portable (05/27/25 01:52) Troponin-I Hs (05/27/25 02:52) Troponin-I Hs (05/27/25 04:52) Gallbladder (05/27/25 01:54) Heplock Iv (05/27/25 ) Admit (05/27/25 04:14) Code Status (05/27/25 04:14) Sodium Chloride 0.9% (05/27/25 04:15) Morphine Sulfate Injection (05/27/25 04:15) Notify Of Changes From Base (05/27/25 04:14) Ceftriaxone Ivpb Rocephin (05/27/25 09:00) Ceftriaxone Ivpb Rocephin (05/27/25 04:15) Npo Except For Medications (05/27/25 04:14) Npo (Nothing By Mouth) Diet (05/27/25 Breakfast) Levetiracetam Tablet (Keppra Tablet) (05/27/25 10:00) Lamotrigine Tablet (Lamictal Tablet) (05/27/25 10:00) Ondansetron Hcl (Zofran) (05/27/25 04:15) * Surgical Consult (05/27/25 ) Vital Signs Date Time Temp Pulse Resp B/P (MAP) Pulse Ox O2 Delivery O2 Flow Rate FiO2 05/27/25 04:00 63 Room Air* 0 21 05/27/25 03:51 61 16 147/87 (107) 95 05/27/25 03:51 60 16 147/87 05/27/25 03:35 Room Air* 0 21 05/27/25 02:48 63 05/27/25 02:00 61 05/27/25 01:54 98.7 60 20 150/84 99 98.7 05/27/25 01:50 61 Laboratory Tests Test 05/27/25 02:45 White Blood Count 14.1 10^3/uL (4.4-10.8) H Medications Medications Dose Ordered Sig/Perry Route Start Time Stop Time Status Last Admin Dose Admin Morphine Sulfate 4 mg ONCE ONCE IV 05/27/25 03:30 05/27/25 03:31 DC 05/27/25 03:51 4 MG Ondansetron HCl 4 mg ONCE ONCE IV 05/27/25 02:00 05/27/25 02:01 DC 05/27/25 03:01 4 MG Pantoprazole Sodium 40 mg ONCE ONCE IV 05/27/25 02:00 05/27/25 02:01 DC 05/27/25 03:01 40 MG Assessment/Plan Assessment/Plan Intractable abdominal pain due to acute cholecystitis Acute cholelithiasis Leukocytosis but no left-shifted ER patient received morphine, ondansetron, pantoprazole EKG: SINUS RHYTHM, HR 63, QTC 411 Chest x-ray: no acute cardiopulmonary disease UA: negative Troponin: 5 and repeat troponin Lipase: 41 Ultrasound GB: Cholelithiasis and gallbladder sludge without pericholecystic fluid or wall thickening. NPO Empiric antibiotic ceftriaxone Pain management IV antiemetic Surgery consult Seizure disorder Home medication Keppra and lamotrigine Seizure precaution Outpatient neurology follow up Pre diabetes Hyperlipidemia Morbid obesity Lifestyle modification History of gastric sleeve surgery on 2023 Vitamin-D deficiency Subcentimeter noncalcified pulmonary nodules in the right lung base. Outpatient follow-up. Diet: NPO GI prophylaxis: Pantoprazole DVT prophylaxis: Patient ambulating Goals of care discussion. More than 29 minute spent with patient. Full code status. Case discussed with Dr. Garcia Plan discussed with: Patient, Other (Nurse) My Orders Orders - MECHELLE PAYTON Procedure Category Date Status Time Admit ADMIT 05/27/25 Transmitted 04:14 Code Status CODE 05/27/25 Transmitted 04:14 Sodium Chloride 0.9% PHA 05/27/25 Logged 04:15 Morphine Sulfate PHA 05/27/25 Transmitted Injection 04:15 Notify Md Of Changes PAULY 05/27/25 In Process From Base 04:14 Ceftriaxone Ivpb PHA 05/27/25 Transmitted Rocephin 09:00 Ceftriaxone Ivpb PHA 05/27/25 Transmitted Rocephin 04:15 Npo Except For PAULY 05/27/25 In Process Medications 04:14 Npo (Nothing By DIET 05/27/25 Transmitted Mouth) Diet Breakfast Levetiracetam Tablet PHA 05/27/25 Transmitted (Keppra Tablet) 10:00 Lamotrigine Tablet PHA 05/27/25 Transmitted (Lamictal Tablet) 10:00 Ondansetron Hcl PHA 05/27/25 Transmitted (Zofran) 04:15 * Surgical Consult CONS 05/27/25 Transmitted Date of Service: May 27, 2025 Billing Provider: ROBIN GARCIA MD Common Visit Codes: [id number] INP/OBS CARE (HIGH) Secondary Visit Codes: 74101-EOCPEDXZ CARE PLAN 30 MINUTES MECHELLE PAYTON May 27, 2025 04:27
[2025-05-27] MEDS ORDERED: MORPHINE SULFATE 4 MG/ML SYR/VIAL IV PRN (04:45)
[2025-05-27 05:16] LABS: INR 1.01 (0.9-1.15); Partial Thromboplastin Time 29.6 SEC (24.5-34.5); Prothrombin Time 10.7 sec (9.3-11.8)
[2025-05-27 05:31] LABS: Hematocrit 42.2 % (41.0-53.0); Hemoglobin 14.2 g/dL (13.5-17.5); Mean Corpuscular Hemoglobin 28.6 pg (28.0-32.0); Mean Corpuscular Volume 84.9 fL (80.0-100.0); Nucleated Red Blood Cells % 0.0 %
[2025-05-27] MEDS: SODIUM CHLORIDE 0.9% 1,000 ML IV SCH (05:37)
[2025-05-27 10:02] VITALS: O2SAT 97
[2025-05-27] MEDS: PANTOPRAZOLE 40 MG/10 ML VIAL INJ IV SCH (10:10)
[2025-05-27] MEDS: levETIRAcetam 500 MG TAB PO SCH (10:10)
[2025-05-27] MEDS: lamoTRIgine 100 MG TAB PO SCH (10:10)
[2025-05-27] MEDS ORDERED: LAM100T PO (11:44)
--- NOTE | 2025-05-27 13:02 | DVHINCON2 ---
Consultation - Surgical Date Seen: May 27, 2025 Referring Physician Reason for Consultation Cholecystitis History of Present Illness History of Present Illness Mr. Young is a 35-year-old male who presents with right flank/right upper quadrant pain that then radiated to the epigastric area. Pain started yesterday after eating tacos and a cheese burger. Patient had associated nausea but no vomiting. Has never had this pain before. Denies fevers, chills, changes in urinary or stooling habits. Past Medical/Surgical History Past Medical/Surgical History Past medical history morbid obesity, epilepsy Past surgical history gastric sleeve Family and Social History Family and Social History ETOH occasional T Ob/drugs denies Allergies and medications Allergies: Coded Allergies: NO KNOWN ALLERGIES (Unverified , 09/01/24) Home Meds Active Scripts Loperamide Hcl (Imodium) 2 Mg Cp, 2 MG PO Q6HP PRN, #20 CAP Prn diarrhea Prov:BENJAMIN PRESTON MD 03/11/25 Dicyclomine Hcl (BENTYL CAPSULE) 10 Mg Cp, 2 CAP PO Q6HP PRN, #30 CAP 11 Refills Prn abdominal pain Prov:BENJAMIN PRESTON MD 03/11/25 Metronidazole (Flagyl) 500 Mg Tab, 1 TAB PO TID for 10 Days, #30 TAB Prov:BENJAMIN PRESTON MD 03/11/25 Ciprofloxacin Hcl (Cipro) 500 Mg Tab, 1 TAB PO BID for 10 Days, #20 TAB Prov:BENJAMIN PRESTON MD 03/11/25 Reported Medications Lamotrigine (Lamictal) 100 Mg Tab, 1 TAB PO DAILY, #30 TAB 1 Refill 05/27/25 Levetiracetam (Keppra) 500 Mg Tab, 500 MG PO BID for 30 Days, MG 09/27/24 Review of systems Review of Systems: Deferred Examination Vital signs Vital Signs Date Time Temp Pulse Resp B/P (MAP) Pulse Ox O2 Delivery O2 Flow Rate FiO2 05/27/25 10:02 97 Room Air* 0 21 05/27/25 08:02 97.6 68 16 153/95 (114) 97.6 Medications Current Medications Medications (Trade) Dose Ordered Sig/[place]ry Route PRN Reason Start Time Stop Time Status Last Admin Sodium Chloride 1,000 ml @ 75 mls/hr [id number] IV 05/27/25 04:15 05/27/25 05:37 Morphine Sulfate 2 mg Q4HPRN PRN IV SEVERE PAIN (7-10 PAIN SCALE) 05/27/25 04:45 Ceftriaxone Sodium 50 ml @ 100 mls/hr DAILY@09 IV 05/28/25 09:00 Levetiracetam (Keppra Tablet) 750 mg BID PO 05/27/25 10:00 05/27/25 10:10 Lamotrigine (LaMICtal TABLET) 100 mg DAILY PO 05/27/25 10:00 05/27/25 10:10 Ondansetron HCl (Zofran) 4 mg Q4HPRN PRN IV NAUSEA / VOMITING 05/27/25 04:15 Pantoprazole Sodium (Protonix) 40 mg DAILY IV 05/27/25 10:00 05/27/25 10:10 Folic Acid 1 mg/ Magnesium Sulfate 8 meq/ Multivitamins 10 ml/Thiamine HCl 100 mg/Sodium Chloride 1,013.2 ml @ 126.247 mls/hr DAILY@1800 INJ 05/27/25 18:00 UNV Chlordiazepoxide HCl (Librium Capsule) 10 mg Q6HPRN PRN PO ALCOHOL WITHDRAWAL SYMPTOMS 05/27/25 12:45 UNV Laboratory Labs Test 05/27/25 05:08 05/27/25 03:15 05/27/25 02:45 Range/Units White Blood Count 11.6 H 4.4-10.8 10^3/uL Red Blood Count 4.97 4.5-5.90 10^6/uL Hemoglobin 14.2 13.5-17.5 g/dL Hematocrit 42.2 41.0-53.0 % Mean Corpuscular Volume 84.9 80.0-100.0 fL Mean Corpuscular Hemoglobin 28.6 28.0-32.0 pg Mean Corpuscular Hemoglobin Concent 33.7 32.0-36.0 g/dL Red Cell Distribution Width 14.0 11.8-14.3 % Platelet Count 281 140-450 10^3/uL Mean Platelet Volume 6.2 L 6.9-10.8 fL Neutrophils (%) (Auto) 91.0 H 37.0-80.0 % Lymphocytes (%) (Auto) 6.4 L 10.0-50.0 % Monocytes (%) (Auto) 2.4 0.0-12.0 % Eosinophils (%) (Auto) 0.0 0.0-7.0 % Basophils (%) (Auto) 0.2 0.0-2.0 % Neutrophils # (Auto) 10.5 H 1.6-8.6 10 ^3/uL Lymphocytes # (Auto) 0.7 0.4-5.4 10 ^3/uL Monocytes # (Auto) 0.3 0-1.3 10 ^3/uL Eosinophils # (Auto) 0 0-0.8 10 ^3/uL Basophils # (Auto) 0 0-0.2 10 ^3/uL Nucleated Red Blood Cells 0.0 % Troponin I High Sensitivity 4 </=54 ng/L Urine Color Yellow Yellow Urine Clarity Clear Clear Urine pH 5.5 5.0-9.0 Urine Specific [place] 1.031 1.001-1.035 Urine Protein Trace H Negative Urine Ketones Trace Negative Urine Blood Negative Negative /uL Urine Nitrite Negative Negative Urine Bilirubin Negative Negative Urine Urobilinogen 2 H Negative mg/dL Urine Leukocyte Esterase Negative Negative /uL Urine RBC 1 0 - 3 /hpf Urine Microscopic WBC 1 0-3 /HPF Urine Squamous Epithelial Cells Few <5 /hpf Urine Bacteria None seen None Seen /hpf Urine Glucose Normal Normal mg/dL Prothrombin Time 10.7 9.3-11.8 sec Prothrombin Time INR 1.01 0.9-1.15 Activated Partial Thromboplast Time 29.6 24.5-34.5 SEC Sodium Level 139 136-145 mmol/L Potassium Level 4.0 3.5-5.1 mmol/L Chloride Level 101 98-107 mmol/L Carbon Dioxide Level 27 20-31 mmol/L Anion Gap 11 5-15 Blood Urea Nitrogen 16 9-23 mg/dL Creatinine 0.98 0.700-1.30 mg/dL Glomerular Filtration Rate Calc 102 >90 mL/min BUN/Creatinine Ratio 16.3 10.0-20.0 Serum Glucose 117 H 74-106 mg/dL Calcium Level 9.3 8.7-10.4 mg/dL Lipase 41 12-53 U/L Vitamin D 25-Hydroxy 49.5 30.0-100 ng/mL Examination: GENERAL:Normal (Obese, AAO x3), HEENT:Normal (No icterus), LUNGS:Normal (Nonlabored breathing with symmetric expansion), ABDOMEN:Normal (Large pannus, previous laparoscopic scars healed, soft, depressible, right upper quadrant tenderness, no rebound, no guarding), SKIN:Normal (No dullness) Problem List/Assessment/Plan Problems: (1) Cholecystitis Assessment and Plan Mr. Young is a 35-year-old male who presents with symptomatic cholelithiasis versus early acute cholecystitis. Ultrasound shows sludge and stones without any pericholecystic fluid/gallbladder wall thickening or CBD dilation. Patient will benefit from laparoscopic cholecystectomy. Procedure, risks, benefits, complications, and alternatives discussed with the patient. 1. On-call to OR for laparoscopic cholecystectomy, possible open 2. NPO Plan discussed with Plan discussed with: Patient Visit Coding Surgery Date of Service if different f: May 27, 2025 Billing Provider: DIANE LLOYD MD Surgery Visit Codes: 38340 - INP CONSULT <110 MIN DIANE LLOYD MD May 27, 2025 13:02
[2025-05-27] MEDS ORDERED: fentaNYL CITRATE 100 MCG/2 ML VL ONE (14:08)
[2025-05-27] MEDS ORDERED: PROPOFOL 10 MG/ML 20 ML IV ONE (14:08)
[2025-05-27] MEDS ORDERED: KETOROLAC TROMETH 30 MG/ML 1ML VIAL ONE (14:08)
[2025-05-27] MEDS ORDERED: HYDROmorphone HCL 2 MG/ML VL/or syr ONE (14:08)
[2025-05-27] MEDS ORDERED: LIDOCAINE 2% (LOCAL ANESTH.) PF 5ml SDV ONE (14:08)
[2025-05-27] MEDS ORDERED: MIDAZOLAM HCL 2MG/2ML 2ml VIAL (1mg/ml) ONE (14:08)
[2025-05-27] MEDS ORDERED: GLYCOPYRROLATE 0.2 MG/ML 1ML VIAL ONE (14:08)
[2025-05-27] MEDS: FOLIC ACID 1 MG, MAGNESIUM SULF SDV 50% 8 MEQ, MULTIPLE VITAMIN 10 ML, THIAMINE INJ 100... INJ SCH (14:32)
[2025-05-27] MEDS: ACETAMINOPHEN IV 100 ML IV ONE (15:33)
[2025-05-27] MEDS: BUPIVACAINE 0.25% INJ 50ML VIAL ONE (15:34)
[2025-05-27] MEDS ORDERED: PYRI50TA71 PO (15:46)
[2025-05-27 16:06] VITALS: BP 140/85; PULSE 58; RESP 14; TEMP 97.3; O2SAT 97
[2025-05-27] MEDS: FOLIC ACID 1 MG, MAGNESIUM SULF SDV 50% 8 MEQ, MULTIPLE VITAMIN 10 ML, THIAMINE INJ 100... INJ ONE (16:30)
[2025-05-27 17:53] VITALS: PULSE 63; RESP 20; TEMP 97.9; O2SAT 98
[2025-05-27] MEDS ORDERED: FOLIC ACID 1 MG, MAGNESIUM SULF SDV 50% 8 MEQ, MULTIPLE VITAMIN 10 ML, THIAMINE INJ 100... INJ SCH (18:00)
[2025-05-27 20:00] VITALS: PULSE 64; RESP 17; O2SAT 98
[2025-05-27 21:00] VITALS: BP 150/102; PULSE 64; RESP 17; TEMP 98.1; O2SAT 98
[2025-05-28 01:00] VITALS: BP 150/103; PULSE 62; RESP 17; TEMP 98.1; O2SAT 96
[2025-05-28 04:38] VITALS: BP 145/92; PULSE 71; RESP 17; TEMP 98.2; O2SAT 97
[2025-05-28 08:00] VITALS: PULSE 57; RESP 14; O2SAT 97
[2025-05-28 08:29] LABS: Alanine Aminotransferase 28 U/L (7-40); Albumin 4.1 g/dL (3.2-4.8); Alkaline Phosphatase 80 U/L (46-116); Anion Gap 6 (5-15); BUN/Creatinine Ratio 11.0 (10.0-20.0); Blood Urea Nitrogen 10 mg/dL (9-23); Calcium 9.4 mg/dL (8.7-10.4); Carbon Dioxide 31 mmol/L (20-31); Chloride 104 mmol/L (98-107); Glucose 89 mg/dL (74-106); Potassium 3.9 mmol/L (3.5-5.1); Sodium 141 mmol/L (136-145); Total Protein 7.2 g/dL (5.7-8.2)
[2025-05-28 08:30] LABS: Bilirubin, Total 0.9 mg/dL (0.2-1.0)
[2025-05-28 08:37] VITALS: BP 147/93; PULSE 57; RESP 14; TEMP 98.8; O2SAT 97
[2025-05-28 12:30] VITALS: BP 159/98; PULSE 66; RESP 16; TEMP 98.6; O2SAT 96
[2025-05-28] MEDS ORDERED: AUG875T PO (13:57)
--- NOTE | 2025-05-28 14:02 | DVHDS2 ---
Discharge Summary Date of Admission May 27, 2025 at 04:14 Date of Discharge: May 28, 2025 Labs/Diagnostic Data: Laboratory Results Test 05/28/25 06:18 05/27/25 05:08 05/27/25 03:15 05/27/25 02:45 Sodium Level 141 mmol/L (136-145) Potassium Level 3.9 mmol/L (3.5-5.1) Chloride Level 104 mmol/L (98-107) Carbon Dioxide Level 31 mmol/L (20-31) Anion Gap 6 (5-15) Blood Urea Nitrogen 10 mg/dL (9-23) Creatinine 0.91 mg/dL (0.700-1.30) Glomerular Filtration Rate Calc 111 mL/min (>90) BUN/Creatinine Ratio 11.0 (10.0-20.0) Serum Glucose 89 mg/dL (74-106) Calcium Level 9.4 mg/dL (8.7-10.4) Total Bilirubin 0.9 mg/dL (0.2-1.0) Aspartate Amino Transferase (AST) 19 U/L (13-40) Alanine Aminotransferase (ALT) 28 U/L (7-40) Alkaline Phosphatase 80 U/L (46-116) Total Protein 7.2 g/dL (5.7-8.2) Albumin 4.1 g/dL (3.2-4.8) White Blood Count 11.6 10^3/uL (4.4-10.8) Red Blood Count 4.97 10^6/uL (4.5-5.90) Hemoglobin 14.2 g/dL (13.5-17.5) Hematocrit 42.2 % (41.0-53.0) Mean Corpuscular Volume 84.9 fL (80.0-100.0) Mean Corpuscular Hemoglobin 28.6 pg (28.0-32.0) Mean Corpuscular Hemoglobin Concent 33.7 g/dL (32.0-36.0) Red Cell Distribution Width 14.0 % (11.8-14.3) Platelet Count 281 10^3/uL (140-450) Mean Platelet Volume 6.2 fL (6.9-10.8) Neutrophils (%) (Auto) 91.0 % (37.0-80.0) Lymphocytes (%) (Auto) 6.4 % (10.0-50.0) Monocytes (%) (Auto) 2.4 % (0.0-12.0) Eosinophils (%) (Auto) 0.0 % (0.0-7.0) Basophils (%) (Auto) 0.2 % (0.0-2.0) Neutrophils # (Auto) 10.5 10 ^3/uL (1.6-8.6) Lymphocytes # (Auto) 0.7 10 ^3/uL (0.4-5.4) Monocytes # (Auto) 0.3 10 ^3/uL (0-1.3) Eosinophils # (Auto) 0 10 ^3/uL (0-0.8) Basophils # (Auto) 0 10 ^3/uL (0-0.2) Nucleated Red Blood Cells 0.0 % Troponin I High Sensitivity 4 ng/L (</=54) Urine Color Yellow (Yellow) Urine Clarity Clear (Clear) Urine pH 5.5 (5.0-9.0) Urine Specific [place] 1.031 (1.001-1.035) Urine Protein Trace (Negative) Urine Ketones Trace (Negative) Urine Blood Negative /uL (Negative) Urine Nitrite Negative (Negative) Urine Bilirubin Negative (Negative) Urine Urobilinogen 2 mg/dL (Negative) Urine Leukocyte Esterase Negative /uL (Negative) Urine RBC 1 /hpf (0 - 3) Urine Microscopic WBC 1 /HPF (0-3) Urine Squamous Epithelial Cells Few /hpf (<5) Urine Bacteria None seen /hpf (None Seen) Urine Glucose Normal mg/dL (Normal) Prothrombin Time 10.7 sec (9.3-11.8) Prothrombin Time INR 1.01 (0.9-1.15) Activated Partial Thromboplast Time 29.6 SEC (24.5-34.5) Lipase 41 U/L (12-53) Vitamin D 25-Hydroxy 49.5 ng/mL (30.0-100) Other Laboratory Tests 05/28/25 06:18 05/27/25 05:08 Brief Hx & Hospital Course: 35-YEAR-OLD MALE WITH A KNOWN HISTORY OF MORBID OBESITY CLASS THREE, SEIZURE DISORDER, PRESENTED TO THE HOSPITAL WITH A EPIGASTRIC PAIN FOUND TO HAVE SYMPTOMATIC CHOLELITHIASIS. PATIENT WAS SCHEDULED FOR LAPAROSCOPIC CHOLECYSTECTOMY. PATIENT DOES HAVE KNOWN HISTORY OF SEIZURE DISORDER AND PATIENT'S CANCEL THE SURGERY HE WANTS TO TALK TO HIS NEUROLOGIST 1ST BECAUSE OF SEIZURES. PATIENT'S HAS A NO ACTIVE SEIZURE IN HOUSE. PATIENT IS CURRENTLY TOLERATING DIET AND STABLE TO BE DISCHARGED ON P.O. ANTIBIOTICS WITH A CLOSE FOLLOW UP AN OUTPATIENT WITH THE PCP NEUROLOGY WELL GENERAL SURGERY. PATIENT WAS RECOMMENDED TO RETURN TO ER IF THERE IS ANY RECURRENT ABDOMINAL PAIN NAUSEA AND VOMITING OR ANY CONCERN. DIET WEIGHT REDUCTION AND EXERCISE COUNSELING PATIENT'S HAS A MORBID OBESITY CLASS THREE. Condition at Discharge: Stable Final Diagnosis/Problems List 1. SYMPTOMATIC CHOLELITHIASIS, CURRENTLY RESOLVED OUTPATIENT FOLLOW UP WITH GENERAL SURGERY 2. EPIGASTRIC PAIN SECONDARY TO 1. RESOLVED 3. SEIZURE DISORDER 4. CHRONIC ALCOHOLISM 5. LEUKOCYTOSIS LIKELY REACTIVE 6. MORBID OBESITY CLASSIII Discharge Disposition: Home SNF Discharge Will this Physician continue t: No Discharge Instruct/Medications Diet: Cardiac 2g Na,low cholest Activity: No Restrictions, As Tolerated Follow Up/Referral: FOLLOW UP WITH THE PCP IN ONE WEEK FOLLOW UP WITH THE GENERAL SURGERY IN 1-2 WEEKS. FOLLOW UP WITH THE YOUR OWN NEUROLOGY IN 1-2 WEEKS Medications: UNDER TO AUGMENTIN PRESCRIBED. New Medications: Amoxicillin & Pot Clavulanate (Augmentin Tablet) 875 Mg Tb 875 MG PO BID for 10 Days, #20 TAB Continued Medications: Dicyclomine Hcl (Bentyl Capsule) 10 Mg Cp 2 CAP PO Q6HP PRN, #30 CAP 11 Refills Prn abdominal pain Lamotrigine (Lamictal) 100 Mg Tab 1 TAB PO DAILY, #30 TAB 1 Refill Levetiracetam (Keppra) 500 Mg Tab 500 MG PO BID for 30 Days, MG Loperamide Hcl (Imodium) 2 Mg Cp 2 MG PO Q6HP PRN, #20 CAP Prn diarrhea Pyridoxine Hcl (Vitamin B 6) 50 Mg Tab 50 MG PO BID, TAB Discontinued Medications: Ciprofloxacin Hcl (Cipro) 500 Mg Tab 1 TAB PO BID for 10 Days, #20 TAB Metronidazole (Flagyl) 500 Mg Tab 1 TAB PO TID for 10 Days, #30 TAB Scheduled Amoxicillin & Pot Clavulanate (Augmentin Tablet), 875 MG PO BID Ciprofloxacin Hcl (Cipro), 1 TAB PO BID Lamotrigine (Lamictal), 1 TAB PO DAILY, (Reported) Levetiracetam (Keppra), 500 MG PO BID, (Reported) Metronidazole (Flagyl), 1 TAB PO TID Pyridoxine Hcl (Vitamin B 6), 50 MG PO BID, (Reported) Scheduled PRN Dicyclomine Hcl (Bentyl Capsule), 2 CAP PO Q6HP PRN Loperamide Hcl (Imodium), 2 MG PO Q6HP PRN Discharge Statement: "Patient was advised to return to the ER or call 911 if any headaches, dizziness, shortness of breath, chest pain, abdominal pain, bleeding, fevers, or worsening of medical condition. Patient was counseled about treatment plan, medications, possible side effects, patientverbalized understanding. All questions were answered to the best of my ability. This discharge took greater then 30 minutes in planning, reviewing documentation, counseling the patient, and discussing with other team members." ASSESSMENT ASSESSMENT Assessment 1. SYMPTOMATIC CHOLELITHIASIS, CURRENTLY RESOLVED OUTPATIENT FOLLOW UP WITH GENERAL SURGERY 2. EPIGASTRIC PAIN SECONDARY TO 1. RESOLVED 3. SEIZURE DISORDER 4. CHRONIC ALCOHOLISM 5. LEUKOCYTOSIS LIKELY REACTIVE 6. MORBID OBESITY CLASSIII Date of Service: May 28, 2025 Billing Provider: JERI PAINTER MD Common Visit Codes: [id number] DISCH DAY >30min JERI PAINTER MD May 28, 2025 14:02
[2025-05-28 15:04] VITALS: BP 159/98; PULSE 66; RESP 14; TEMP 98.6; O2SAT 100
[2025-05-28] MEDS ORDERED: FOLIC ACID 1 MG, MAGNESIUM SULF SDV 50% 8 MEQ, MULTIPLE VITAMIN 10 ML, THIAMINE INJ 100... INJ SCH (18:00)
== END 2025-05-28 16:15 | disposition home or self-care (01) ==
LOC: ER 01:41 → OVERFLOW 04:14 → EAST 17:10
PROVIDERS: ADMIT Internal Medicine; ATTEND Internal Medicine
DX: K80.20 Calculus of gallbladder without cholecystitis without obstruction (principal); E55.9 Vitamin D deficiency, unspecified; G40.909 Epilepsy, unspecified, not intractable, without status epilepticus; F10.20 Alcohol dependence, uncomplicated; E66.813 Obesity, class 3; E78.5 Hyperlipidemia, unspecified; R73.03 Prediabetes; Z83.3 Family history of diabetes mellitus; Z68.42 Body mass index [BMI] 45.0-49.9, adult; Y90.9 Presence of alcohol in blood, level not specified
CPT/HCPCS: 36415; 71045; 76705; 80048; 80053; 81001; 82306; 83690; 84484; 85025; 85610; 85730; 86850; 86900; 86901; 93005; 96374; 96375; G0378; J0131; J0694; J1100; J1885; J2003; J2250; J2405; J2470; J2704; J3490

== ENCOUNTER 2025-06-01 09:02 | Emergency (ER) | payer MEDICAID ==
[~2025-06-01] VITALS: Ht 185.4 cm; Wt 166.1 kg
[~2025-06-01 09:02] MED LIST changes: +AUG875T PO; -CIPR-173 PO; +LAM100T PO; -METR-344 PO; +PYRI50TA71 PO
[2025-06-01 09:04] VITALS: BP 138/96; PULSE 76; RESP 18; TEMP 98.1; O2SAT 96
== END 2025-06-01 13:04 | disposition left against medical advice (07) ==
LOC: ER 09:02
DX: R10.9 Unspecified abdominal pain (principal)